=== PATIENT | male | born 1975 | race American Indian/Alaskan Native ===

== ENCOUNTER → 2018-03-31 14:10 | Outpatient (CLI) | payer OTHER, SELFPAY ==
--- NOTE | 2018-03-31 | DI.RAD.S_ITS ---
PROCEDURE: XR FINGER LT MIN 2V INDICATIONS: LEFT MIDDLE FINGER TECHNIQUE: AP hand, 2 views of the third finger(s) acquired. COMPARISON: None. FINDINGS: Bones: Mixed lytic and sclerotic expansile lesion involving the third proximal phalangeal head is seen. Well-defined oval lucent area involving the volar aspect of third proximal phalangeal base is also noted. No gross acute fracture or dislocation. No periosteal reaction no cortical disruption is seen. No suspicious bony lesions. Soft tissues: No suspicious soft tissue calcifications. Soft tissue swelling around third proximal phalangeal head is seen. IMPRESSION: Expansile predominantly radiolucent lesion involving the third proximal phalangeal head with surrounding soft tissue swelling. Finding may represent benign process such as enchondroma. No definite pathologic fracture is seen. Given patient's history of prior surgery in third finger, please correlate with prior study if available. Alternatively, further evaluation with MRI of the finger to be done if indicated. Dictated by: Sahil Ashley M.D. on 03/31/2018 at 15:29 Approved by: Sahil Ashley M.D. on 03/31/2018 at 15:32
== END ==
PROVIDERS: Family Provider Family Medicine; PCP Family Medicine; Visit Provider Family Medicine
DX: M79.645 Pain in left finger(s) (principal); M89.8X4 Other specified disorders of bone, hand; M79.89 Other specified soft tissue disorders
CPT/HCPCS: 73140

== ENCOUNTER 2018-05-22 07:36 | Day surgery (SDC) | payer OTHER, SELFPAY ==
[2018-05-22] VITALS (9 sets, daily range): BP systolic 124–142; BP diastolic 73–90; PULSE 61–70; RESP 8–16; TEMP 36.4–37.4; O2SAT 93–98; BMI 28.4
--- NOTE | 2018-05-22 | PATH_ITS ---
[facility] Accession Number: [id number] . 01 Material submitted: . LEFT MIDDLE PROXIMAL PHALANX . 01 Clinical history: . LYTIC LESION . 01 Diagnosis: Left Middle Proximal Phalanx, Biopsy Curettings: Trabecular bone fragments intermixed with fibroblast-like spindle cells, giant cells and blood-filled spaces. See comment. MRV/05/28/2018 . 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 These can have a similar histologic appearance. The morphology argues against giant cell tumor (giant cell tumors show mononuclear stromal cells and numerous multinucleated osteoclast-like giant cells with many nuclei- usually greater than 50). In addition, features of malignancy including cytologic atypia and infiltration are not present in the material examined. The case has been seen in intradepartmental review by Dr.Patricia Ball, who concurs with the interpretation. . 01 Electronically signed: . Cary Cheema MD, Pathologist NPI- [id number] . 01 Gross description: . Received one formalin-filled container labeled with the patient's name and labeled left middle finger proximal phalanx lytic lesion, are multiple less than 0.1 cm to 0.4 cm, red-steinberg portions of tissue and firm material. Inked and entirely submitted in one cassette. The specimen will be placed in [facility] for softening. (DC:[id number]) /FRR . 01 Microscopic: . Microscopic evaluation shows trabecular bone fragments with evidence of remodeling. Intermixed is a proliferation of spindled fibroblast-like cells, giant cells (with less than 12 nuclei) and blood-filled spaces. Scattered small lymphocytes and hemosiderin deposition is also noted. Mitotic figures are no identified. Cytologic atypia is not identified. Definite reactive woven bone is not identified. . 01 Pathologist provided ICD-10: D16.12 . 01 CPT . 470727 Performed at: 01 [facility] [address] [place] [address] [address], [place], [place] [id number] MD Alexis Trujillo MD Phone: [phone]
--- NOTE | 2018-05-22 08:19 | SUR.PREOP ---
IV start by Paul Tamayo
[2018-05-22] MEDS: LACTATED RINGERS 1,000 ML 42 ML IV (08:22)
--- NOTE | 2018-05-22 09:07 | PM.PREOP ---
Pre-operative Note Interval Note History & Physical reviewed/Exam performed by Physician: Yes Changes to H&P: No
[2018-05-22] MEDS: CEFAZOLIN 2 GM/100 ML FROZ.PIGGY IV (09:21)
[2018-05-22] MEDS: BUPIVACAINE 0.5% W/ EPI (PF) VIAL 30 ML INJ (10:03)
[2018-05-22] MEDS: fentaNYL 100 MCG/2 ML INJ 50 MCG IV ×2 (10:45→10:50)
--- NOTE | 2018-05-22 10:52 | PM.OP.1 ---
Operative Date/Time/Diagnoses Date of procedure: 05/22/18 Time of procedure: 09:30 Pre-op diagnosis: Lytic lesion involving the left middle finger proximal phalanx Post-op diagnosis: same Procedure & Clinicians Procedure: Curettage of bony lesion as well as bone grafting with open reduction external fixation Same procedure as scheduled: Yes Indications: Pathological fracture due to a benign lytic lesion involving the proximal phalanx Surgeon: Stanley Landeros Click Yes if Unassisted: Yes Anesthesia Type: General Operative Notes Findings: Lytic lesion involving the head of the proximal phalanx. 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 Weakening of the cortex just proximal to the lesion with impending pathological fracture. Closure Type: primary Specimen(s): other (Intramedullary tissue was sent to pathology) Prosthetic devices, grafts, tissues, transplants, or devices: Consults bone chips were used as well as the Synthes handset Applied: graft(s) and implant(s) Estimated Blood Loss (mL): 5 Blood products transfused: none Tourniquet time (min): 51 Procedure in detail: On date of service, patient was met in the holding area where his operative site was signed and witnessed by the OR staff. The surgery was once again discussed with the patient in remaining questions or concerns he had were answered fully. Patient was taken back to the operating theater and placed on the operating table in a supine position. Great care was taken to ensure that all bony prominences were appropriately padded. Time-out was performed verifying patient's name procedure and operative site. The left arm was prepped and draped in a normal sterile fashion. Esmarch was used to exsanguinate the limb the tourniquet was turned up to 250 mm of mercury. Fifteen blade was used to make a dorsal incision along the length of the proximal phalanx. Sharp dissection was continued until the extensor tendon was visualized. Using a deep knife the extensor tendon was split midline giving us good visualization of the proximal phalanx. At the neck of the phalanx 1 could see the early stage of the pathological fracture. Small window was made into the cortex and using a curette, the lytic lesion was removed. It was mainly blood and there was really no sign of any remaining marrow tissue. C-arm was also used to help verify the extent of the curettage. Once we felt we had excised the lesion it was then packed with cancellous bone chips. That was packed into the head of the phalanx as well as the neck filling the lytic lesion fully with cancellous bone chips. C-arm was used again to verify placement of allograft. Next, plate was then secured onto the proximal phalanx to secure the pathological fracture site. With adequate fixation both distal and proximal to the area of concern. Final x-rays were obtained verifying plate positioning as well as screw length and positioning. Wound was then copiously irrigated and the split in the extensor tendon was closed with 4 0 Ethibond. Skin was closed with nylon. Patient's hand was then cleaned, dried, and dressed. Patient was placed into a splint and taken to the PACU in stable condition. Complications: none Condition: stable Disposition: PACU Plan for aftercare: Patient can begin gentle range of motion to the middle finger within a few days. No lifting more than a few lb for 6 weeks. Hand therapy will need to make the patient a removable splint for the finger that he can wear as needed.
[2018-05-22] MEDS: HYDROCODONE/ACET 5/325 TABLET 1 TAB PO ×2 (10:55→11:16)
--- NOTE | 2018-05-22 11:48 | SUR.PHASEII ---
Splint/dressing dry and intact. DC instructions reviewed with patient and SO and also printed on paper.
== END 2018-05-22 11:55 | disposition home or self-care (01) ==
PROVIDERS: Visit Provider Orthopaedic Surgery
PROC: (CPT 26735; principal; 2018-05-22 09:00)
DX: M89.9 Disorder of bone, unspecified (principal); I10 Essential (primary) hypertension; E11.9 Type 2 diabetes mellitus without complications; Z79.4 Long term (current) use of insulin; Z79.899 Other long term (current) drug therapy; M84.445A Pathological fracture, left finger(s), initial encounter for fracture
CPT/HCPCS: 26735; 26215; J0690; J2405; J2704; J3010

== ENCOUNTER 2021-02-11 08:16 | Inpatient (IN) | payer OTHER, SELFPAY ==
[2021-02-11] VITALS (33 sets, daily range): BP systolic 99–141; BP diastolic 63–83; PULSE 91–122; RESP 12–26; TEMP 36.5–36.8; O2SAT 92–100; BMI 26.4; BMI 24.0
--- NOTE | 2021-02-11 08:34 | DI.RAD.S_ITS ---
PROCEDURE: XR CHEST 1V INDICATIONS: chest pain TECHNIQUE: One view of the chest was acquired. COMPARISON: [facility], CT, PE STUDY (CTA CHEST), 04/17/2017, 13:41. [facility], CR, CHEST 1 VIEW, 04/18/2017, 14:35. FINDINGS: Surgical changes and devices: None. Lungs and pleura: On this semiupright portable chest examination, no large pneumothorax or large pleural effusions are seen. No focal infiltrates are seen. Low lung volumes are noted. This causes a crowded appearance to the lung markings and limits evaluation. Mediastinum: Mediastinal contours appear normal. Heart size is normal. Bones and chest wall: No suspicious bony lesions. Overlying soft tissues appear unremarkable. IMPRESSION: Portable chest within normal limits. Dictated by: Stalin Napier M.D. on 02/11/2021 at 7:51 Approved by: Stalin Napier M.D. on 02/11/2021 at 7:52
--- NOTE | 2021-02-11 08:35 | ED.SOB ---
HPI - SOB/Dyspnea General Chief Complaint: Chest Pain Stated Complaint: Trouble breathing, palpitations Time Seen by Provider: 02/11/21 08:31 History of Present Illness HPI Narrative: The patient presents with weakness, mild central chest discomfort and dyspnea for the past 3 days. He has no head cold symptoms, no sore throat, and no fever. He has no change in taste or smell. With the dyspnea he has no cough. He has no orthopnea, no peripheral edema. Dyspnea is increased with exertion. He underwent COVID-19 immunizations March and April 2020. He had active COVID December 2018. He received a booster 9 days ago. I talked to his PCM. There was concern about immunization reaction. The patient ihas type 2 diabetes, he ran out of his testing device as well as he has insulin 3-4 days ago. He has not bothered to refill the medications. He has not been testing his glucose levels or taking medications. In addition to diabetes, he has a history of sepsis in pancreatitis related to cholecystitis. He is status post cholecystectomy. He has no abdominal discomfort at this time. He denies nausea vomiting. His appetite is normal. He is drinking plenty of fluids. He has no urinary complaints. Related Data Home Medications Medication Instructions Recorded Confirmed lisinopril 20 mg tablet 20 mg PO QDAY #0 11/10/11 05/22/18 Previous Rx's Medication Instructions Recorded insulin glargine 100 unit/mL (3 40 unit (0.4 mL) SQ QHS #1 vial 04/25/17 mL) subcutaneous pen (Lantus Solostar U-100 Insulin) hydrocodone 5 mg-acetaminophen 325 2 tab PO Q4-6H PRN #60 tab 05/22/18 mg tablet ([place]) Allergies Allergy/AdvReac Type Severity Reaction Status Date / Time No Known Drug Allergies Allergy Verified 05/21/18 14:09 Review of Systems Constitutional Constitutional: Reports as per HPI, Reports body ache(s), Denies chills, Reports fatigue, Denies fever(s), Denies headache(s) and Reports weakness Eyes Eyes: Denies blurry vision and Denies change in vision ENT Ears, Nose, Mouth, and Throat: Denies vertigo, Denies dizziness, Denies headache(s), Denies neck pain, Denies sinus pressure and Denies sore throat Cardiovascular Cardiovascular: Reports chest pain, Denies syncope, Reports rapid heart rate, Denies pedal edema, Denies edema and Denies dyspnea Respiratory Respiratory: Denies chest congestion, Denies cough and Denies dyspnea Gastrointestinal Gastrointestinal: Denies constipation, Denies nausea and Denies vomiting Genitourinary Comments: No complaints Musculoskeletal Musculoskeletal: Denies back pain and Denies neck pain Integumentary/Breasts Skin/Breast: Denies pruritus, Denies lesions and Denies rash Neurologic Neurologic: Denies confusion, Denies vertigo, Denies dizziness, Denies syncope, Denies headache(s) and Reports weakness Psychiatric Psychiatric: Denies confusion Endocrine Endocrine: Reports fatigue Hematologic/Lymphatic On Anticoagulants: No Patient History Medical History (Updated 02/11/21 @ 15:07 by Rory Leija MD) Cholecystitis with cholelithiasis Pancreatitis Type 2 diabetes mellitus Surgical History (Updated 02/11/21 @ 10:11 by Rory Leija MD) Status post cholecystectomy Social History household members: significant other Smoking Status: Current every day smoker Exam Initial Vital Signs Initial Vital Signs: Vital Signs Temperature 97.7 F 02/11/21 08:34 Pulse Rate 114 H 02/11/21 08:34 Respiratory Rate 20 02/11/21 08:34 Blood Pressure 141/82 H 02/11/21 08:34 Pulse Oximetry 100 02/11/21 08:34 Const General: cooperative, comfortable and in distress (Appears ill) HENMT Head: normocephalic and occipital foramen tenderness Face and sinus: sinuses nontender Mouth: oral mucosae normal Throat: posterior oropharynx normal Eyes Conjunctivae: conjunctivae normal Sclera: sclerae normal Cornea: corneas normal Pupils: PERRL EOM: EOM intact bilaterally Neck Neck: full ROM, No tender and No JVD Chest Chest: normal inspection of the chest Resp Effort & Inspection: tachypneic Auscultation: clear to auscultation bilaterally Cardio Rate: tachycardic Rhythm: regular rhythm Heart Sounds: S2 normal and no murmurs GI Inspection: normal to inspection and non-distended Palpation: soft, No mass, No rigid and No tender Back/Spine/Pelvis Back: No CVA tenderness Skin General: no rashes or lesions noted Neuro General: patient alert, patient awake and patient oriented x3 Extrem General: normal to inspection, no pedal edema and no calf tenderness Psych Mental Status: mental status grossly normal Course Course Course Narrative: The patient's presentation immediately raise concern for COVID-19, or immunization reaction. He was tachycardic, with mild tachypnea. He had no fever. O2 sats were 100% on room air. CXR was clear. He is testing positive for COVID-19. However, the patient is in DKA, likely from a using his sling for the last several days. He was initially given fluid boluses. IV insulin 10 units was given. He was then started on the DKA protocol. He is acidotic with a pH 7.1, with an anion shift. He has improved with the medications and fluids given. He requires admission. Beds are not immediately available. Multiple calls were made in an effort to find a hospital bed, none are to be found. Dr. Murrieta, our hospitalist was contacted. He is admitted to this facility, he is in an ER boarding status until further notice. Orders Ordered: ED Orders 02/11/21 08:30 COVID19 -Nasal swab/Pre-Proc Stat 02/11/21 08:34 XR chest 1V Stat EKG-12 Lead Stat 02/11/21 09:10 BNP [NT-proBNP (BNP-Adult 18+)] Stat COVID19 - ADMIT ([employer] swab/PCR) Stat CRP [C-Reactive Protein Quant] Stat Complete Blood Count AUTO DIFF Stat Comprehensive Metabolic Panel Stat D Dimer Stat ESR [Erythrocyte Sedimentation Rate] Stat Hemoglobin A1C% w Est Avg Glu Stat Ketones (Beta-Hydroxybutyrate) Stat Lactate (Lactic Acid) Stat Lipase Stat Osmolality, Serum Stat Troponin & CK Cardiac Panel Stat 02/11/21 10:12 ABG [Arterial Blood Gas] Stat 02/11/21 10:15 Urinalysis and Microscopic Stat 02/11/21 10:32 Blood Culture Stat 02/11/21 13:50 Basic Metabolic Panel Stat 02/11/21 13:51 pH VBG Stat 02/11/21 17:00 BMP [Basic Metabolic Panel] Stat INSULIN DRIP PREMIX (Myxredlin Drip Premix) 100 unit in 100 mls @ 6 mls/hr IV TITRATE BRUNILDA; Protocol Last Titration: 02/11/21 13:07 Dose: 4 mls/hr Documented by: CHERRY Cosigned by: MING Admin: 02/11/21 11:19 Dose: 6 ml/hr, 6 mls/hr Documented by: HCERRY Cosigned by: MING Sodium Chloride (Normal Saline 0.9%) 1,000 mls @ 500 mls/hr IV BOLUS ONE Stop: 02/11/21 15:14 Last Admin: 02/11/21 13:32 Dose: Not Given Documented by: CHERRY Dextrose/Sodium Chloride (Dextrose 5%-0.45% Ns) 1,000 mls @ 129 mls/hr IV CONT BRUNILDA; Protocol Last Admin: 02/11/21 13:15 Dose: 129 mls/hr Documented by: CHERRY POTASSIUM CHLORIDE IN WATER (Potassium Cl 10 Meq/100 Ml Zeenat) 10 meq in 100 mls @ 100 mls/hr IV Q1H BRUNILDA Stop: 02/11/21 16:44 Last Admin: 02/11/21 14:53 Dose: 100 mls/hr Documented by: THERESA Discontinued Medications Aspirin (Aspirin 81 Mg Chew Tab) 324 mg PO NOW ONE Stop: 02/11/21 08:53 Last Admin: 02/11/21 09:18 Dose: 324 mg Documented by: CHERRY Sodium Chloride (Normal Saline 0.9%) 1,000 mls @ 1,000 mls/hr IV BOLUS ONE Stop: 02/11/21 10:42 Last Infusion: 02/11/21 11:16 Dose: 0 mls/hr Documented by: Admin: 02/11/21 10:05 Dose: 1,000 mls/hr Documented by: CHERRY Sodium Chloride (Normal Saline 0.9%) 1,000 mls @ 500 mls/hr IV BOLUS ONE Stop: 02/11/21 13:13 Last Infusion: 02/11/21 13:09 Dose: 0 mls/hr Documented by: Infusion: 02/11/21 13:07 Dose: 0 mls/hr Documented by: Admin: 02/11/21 11:17 Dose: 500 mls/hr Documented by: CHERRY Insulin Human Regular (Insulin Regular 100 Unit/Ml 3 Ml Vial) 10 unit IV NOW ONE Stop: 02/11/21 09:45 Last Admin: 02/11/21 10:05 Dose: 10 unit Documented by: CHERRY Cosigned by: BRENDA Vital Signs Vital signs: Vital Signs - 8 hr 02/11/21 08:34 02/11/21 08:59 02/11/21 09:00 Temperature 97.7 F Pulse Rate 114 H 117 H 117 H Respiratory Rate 20 19 26 H Blood Pressure 141/82 H 138/77 Pulse Oximetry 100 99 99 02/11/21 09:30 02/11/21 10:00 02/11/21 10:30 Temperature Pulse Rate 115 H 114 H 122 H Respiratory Rate 26 H 22 21 Blood Pressure 127/74 136/83 Pulse Oximetry 100 99 100 02/11/21 10:31 02/11/21 11:00 02/11/21 11:30 Temperature Pulse Rate 121 H 114 H 112 H Respiratory Rate 20 16 15 Blood Pressure 134/78 133/78 121/71 Pulse Oximetry 100 100 98 02/11/21 12:00 02/11/21 12:30 02/11/21 13:00 Temperature Pulse Rate 105 H 106 H 109 H Respiratory Rate 18 17 16 Blood Pressure 126/82 123/81 113/70 Pulse Oximetry 100 99 97 02/11/21 13:30 Temperature Pulse Rate 117 H Respiratory Rate 17 Blood Pressure 117/73 Pulse Oximetry 99 MDM - SOB/Dyspnea Lab Data Result diagrams: 02/11/21 09:10 02/11/21 13:50 Labs: Lab Results 02/11/21 02/11/21 02/11/21 Range/Units 08:30 09:10 09:10 WBC 9.5 (4.5-11.0) X10^3/uL RBC 5.63 (4.5-5.9) X10^6/uL Hgb 16.6 (13.5-17.5) g/dL Hct 49.6 (41-53) % MCV 88.1 (80-100) fL MCH 29.5 (26-34) PG MCHC 33.5 (30-36) % RDW 14.5 (11.6-14.8) % Plt Count 269 (150-400) X10^3/uL Neut % (Auto) 89.8 H (50-75) % Lymph % (Auto) 7.0 L (25-40) % [place] % (Auto) 2.9 L (3-14) % Eos % (Auto) 0.1 L (2-4) % Baso % (Auto) 0.2 (0-2) % Neut # (Auto) 8600 H (7635-0206) /uL Lymph # (Auto) 700 L (2747-8150) /uL [place] # (Auto) 300 (0-900) /uL Eos # (Auto) 0 (0-450) /uL Baso # (Auto) 0 (0-100) /uL ESR (0-15) MM/HR D-Dimer (<230) ng/mL ABG pH (7.35-7.45) ABG pCO2 (35-45) mmHg ABG pO2 (80-100) mmHg ABG HCO3 (22-26) mmol/L ABG Total CO2 (21-31) mmol/L ABG O2 Saturation (95-100) % ABG Base Excess (-2-2) mmol/L VBG pH (7.33-7.43) FiO2 Sodium 140 (137-145) mmol/L Potassium 4.8 (3.4-5.1) mmol/L Chloride 103 (98-107) mmol/L Carbon Dioxide 6 L* (22-32) mmol/L BUN 13 (9-20) mg/dL Creatinine 1.15 (0.66-1.25) mg/dL Estimated GFR > 60.0 (>60) mL/min BUN/Creatinine Ratio 11.3 (6-22) Glucose 508 H* (70-100) mg/dL Hemoglobin A1c (4.0-6.0) % Lactate (0.7-2.1) mmol/L Calcium 9.2 (8.4-10.2) mg/dL Total Bilirubin 0.6 (0.2-1.3) mg/dL AST 18 (17-59) IU/L ALT 18 (<50) IU/L Alkaline Phosphatase 119 (38-126) U/L Total Creatine Kinase 41 L (55-170) U/L CK-MB (CK-2) TNP CK-MB (CK-2) Rel Index TNP Troponin I < 0.012 (0.01-0.034) ng/mL C-Reactive Protein (<1.0) mg/dL NT-Pro-B Natriuret Pep (<125) pg/mL Total Protein 8.8 H (6.3-8.2) g/dL Albumin 5.1 H (3.5-5.0) g/dL Globulin 3.7 (1.7-4.1) g/dL Albumin/Globulin Ratio 1.4 (1.0-2.8) Lipase 48 (23-300) U/L Urine Color Urine Appearance Urine pH (4.5-8.0) Ur Specific [place] (1.000-1.035) Urine Protein (Negative) Urine Glucose (UA) (Negative) g/dL Urine Ketones (NEGATIVE) Urine Occult Blood (Negative) Urine Nitrate (Negative) Urine Bilirubin (NEGATIVE) Urine Urobilinogen (0.2) E.U./dL Ur Leukocyte Esterase (NEGATIVE) Urine RBC (0-5/HPF) Urine WBC (0-5/HPF) Amorphous Sediment Urine Bacteria (None) Hyaline Casts (None) Ur Culture Indicated? Ketones (<0.27) mmol/L SARS-CoV-2 (PCR) Positive H (Negative) 02/11/21 02/11/21 02/11/21 Range/Units 09:10 09:10 09:10 WBC (4.5-11.0) X10^3/uL RBC (4.5-5.9) X10^6/uL Hgb (13.5-17.5) g/dL Hct (41-53) % MCV (80-100) fL MCH (26-34) PG MCHC (30-36) % RDW (11.6-14.8) % Plt Count (150-400) X10^3/uL Neut % (Auto) (50-75) % Lymph % (Auto) (25-40) % [place] % (Auto) (3-14) % Eos % (Auto) (2-4) % Baso % (Auto) (0-2) % Neut # (Auto) (6604-5126) /uL Lymph # (Auto) (4768-7285) /uL [place] # (Auto) (0-900) /uL Eos # (Auto) (0-450) /uL Baso # (Auto) (0-100) /uL ESR 3 (0-15) MM/HR D-Dimer < 200 (<230) ng/mL ABG pH (7.35-7.45) ABG pCO2 (35-45) mmHg ABG pO2 (80-100) mmHg ABG HCO3 (22-26) mmol/L ABG Total CO2 (21-31) mmol/L ABG O2 Saturation (95-100) % ABG Base Excess (-2-2) mmol/L VBG pH (7.33-7.43) FiO2 Sodium (137-145) mmol/L Potassium (3.4-5.1) mmol/L Chloride (98-107) mmol/L Carbon Dioxide (22-32) mmol/L BUN (9-20) mg/dL Creatinine (0.66-1.25) mg/dL Estimated GFR (>60) mL/min BUN/Creatinine Ratio (6-22) Glucose (70-100) mg/dL Hemoglobin A1c (4.0-6.0) % Lactate (0.7-2.1) mmol/L Calcium (8.4-10.2) mg/dL Total Bilirubin (0.2-1.3) mg/dL AST (17-59) IU/L ALT (<50) IU/L Alkaline Phosphatase (38-126) U/L Total Creatine Kinase (55-170) U/L CK-MB (CK-2) CK-MB (CK-2) Rel Index Troponin I (0.01-0.034) ng/mL C-Reactive Protein (<1.0) mg/dL NT-Pro-B Natriuret Pep (<125) pg/mL Total Protein (6.3-8.2) g/dL Albumin (3.5-5.0) g/dL Globulin (1.7-4.1) g/dL Albumin/Globulin Ratio (1.0-2.8) Lipase (23-300) U/L Urine Color Urine Appearance Urine pH (4.5-8.0) Ur Specific [place] (1.000-1.035) Urine Protein (Negative) Urine Glucose (UA) (Negative) g/dL Urine Ketones (NEGATIVE) Urine Occult Blood (Negative) Urine Nitrate (Negative) Urine Bilirubin (NEGATIVE) Urine Urobilinogen (0.2) E.U./dL Ur Leukocyte Esterase (NEGATIVE) Urine RBC (0-5/HPF) Urine WBC (0-5/HPF) Amorphous Sediment Urine Bacteria (None) Hyaline Casts (None) Ur Culture Indicated? Ketones (<0.27) mmol/L SARS-CoV-2 (PCR) Positive H (Negative) 02/11/21 02/11/21 02/11/21 Range/Units 09:10 09:10 09:10 WBC (4.5-11.0) X10^3/uL RBC (4.5-5.9) X10^6/uL Hgb (13.5-17.5) g/dL Hct (41-53) % MCV (80-100) fL MCH (26-34) PG MCHC (30-36) % RDW (11.6-14.8) % Plt Count (150-400) X10^3/uL Neut % (Auto) (50-75) % Lymph % (Auto) (25-40) % [place] % (Auto) (3-14) % Eos % (Auto) (2-4) % Baso % (Auto) (0-2) % Neut # (Auto) (3053-2694) /uL Lymph # (Auto) (3370-6123) /uL [place] # (Auto) (0-900) /uL Eos # (Auto) (0-450) /uL Baso # (Auto) (0-100) /uL ESR (0-15) MM/HR D-Dimer (<230) ng/mL ABG pH (7.35-7.45) ABG pCO2 (35-45) mmHg ABG pO2 (80-100) mmHg ABG HCO3 (22-26) mmol/L ABG Total CO2 (21-31) mmol/L ABG O2 Saturation (95-100) % ABG Base Excess (-2-2) mmol/L VBG pH (7.33-7.43) FiO2 Sodium (137-145) mmol/L Potassium (3.4-5.1) mmol/L Chloride (98-107) mmol/L Carbon Dioxide (22-32) mmol/L BUN (9-20) mg/dL Creatinine (0.66-1.25) mg/dL Estimated GFR (>60) mL/min BUN/Creatinine Ratio (6-22) Glucose (70-100) mg/dL Hemoglobin A1c 12.4 H (4.0-6.0) % Lactate 1.6 (0.7-2.1) mmol/L Calcium (8.4-10.2) mg/dL Total Bilirubin (0.2-1.3) mg/dL AST (17-59) IU/L ALT (<50) IU/L Alkaline Phosphatase (38-126) U/L Total Creatine Kinase (55-170) U/L CK-MB (CK-2) CK-MB (CK-2) Rel Index Troponin I (0.01-0.034) ng/mL C-Reactive Protein < 0.5 (<1.0) mg/dL NT-Pro-B Natriuret Pep 12 (<125) pg/mL Total Protein (6.3-8.2) g/dL Albumin (3.5-5.0) g/dL Globulin (1.7-4.1) g/dL Albumin/Globulin Ratio (1.0-2.8) Lipase (23-300) U/L Urine Color Urine Appearance Urine pH (4.5-8.0) Ur Specific [place] (1.000-1.035) Urine Protein (Negative) Urine Glucose (UA) (Negative) g/dL Urine Ketones (NEGATIVE) Urine Occult Blood (Negative) Urine Nitrate (Negative) Urine Bilirubin (NEGATIVE) Urine Urobilinogen (0.2) E.U./dL Ur Leukocyte Esterase (NEGATIVE) Urine RBC (0-5/HPF) Urine WBC (0-5/HPF) Amorphous Sediment Urine Bacteria (None) Hyaline Casts (None) Ur Culture Indicated? Ketones (<0.27) mmol/L SARS-CoV-2 (PCR) (Negative) 02/11/21 02/11/21 02/11/21 Range/Units 09:10 10:12 10:15 WBC (4.5-11.0) X10^3/uL RBC (4.5-5.9) X10^6/uL Hgb (13.5-17.5) g/dL Hct (41-53) % MCV (80-100) fL MCH (26-34) PG MCHC (30-36) % RDW (11.6-14.8) % Plt Count (150-400) X10^3/uL Neut % (Auto) (50-75) % Lymph % (Auto) (25-40) % [place] % (Auto) (3-14) % Eos % (Auto) (2-4) % Baso % (Auto) (0-2) % Neut # (Auto) (2289-7933) /uL Lymph # (Auto) (9125-9426) /uL [place] # (Auto) (0-900) /uL Eos # (Auto) (0-450) /uL Baso # (Auto) (0-100) /uL ESR (0-15) MM/HR D-Dimer (<230) ng/mL ABG pH 7.14 L* (7.35-7.45) ABG pCO2 12.5 L* (35-45) mmHg ABG pO2 121 H (80-100) mmHg ABG HCO3 4 L (22-26) mmol/L ABG Total CO2 < 5 L (21-31) mmol/L ABG O2 Saturation 98 (95-100) % ABG Base Excess -25.0 L (-2-2) mmol/L VBG pH (7.33-7.43) FiO2 21 Sodium (137-145) mmol/L Potassium (3.4-5.1) mmol/L Chloride (98-107) mmol/L Carbon Dioxide (22-32) mmol/L BUN (9-20) mg/dL Creatinine (0.66-1.25) mg/dL Estimated GFR (>60) mL/min BUN/Creatinine Ratio (6-22) Glucose (70-100) mg/dL Hemoglobin A1c (4.0-6.0) % Lactate (0.7-2.1) mmol/L Calcium (8.4-10.2) mg/dL Total Bilirubin (0.2-1.3) mg/dL AST (17-59) IU/L ALT (<50) IU/L Alkaline Phosphatase (38-126) U/L Total Creatine Kinase (55-170) U/L CK-MB (CK-2) CK-MB (CK-2) Rel Index Troponin I (0.01-0.034) ng/mL C-Reactive Protein (<1.0) mg/dL NT-Pro-B Natriuret Pep (<125) pg/mL Total Protein (6.3-8.2) g/dL Albumin (3.5-5.0) g/dL Globulin (1.7-4.1) g/dL Albumin/Globulin Ratio (1.0-2.8) Lipase (23-300) U/L Urine Color Yellow Urine Appearance Clear Urine pH 5.0 (4.5-8.0) Ur Specific [place] 1.025 (1.000-1.035) Urine Protein 1+ H (Negative) Urine Glucose (UA) 1+ H (Negative) g/dL Urine Ketones 3+ H (NEGATIVE) Urine Occult Blood 3+ H (Negative) Urine Nitrate Negative (Negative) Urine Bilirubin Negative (NEGATIVE) Urine Urobilinogen 0.2 (0.2) E.U./dL Ur Leukocyte Esterase Negative (NEGATIVE) Urine RBC 5-10/hpf H (0-5/HPF) Urine WBC None seen (0-5/HPF) Amorphous Sediment 2+ Urine Bacteria None seen (None) Hyaline Casts 1-5/lpf (None) Ur Culture Indicated? Cult not indicated Ketones 10.87 H (<0.27) mmol/L SARS-CoV-2 (PCR) (Negative) 02/11/21 02/11/21 Range/Units 13:50 13:51 WBC (4.5-11.0) X10^3/uL RBC (4.5-5.9) X10^6/uL Hgb (13.5-17.5) g/dL Hct (41-53) % MCV (80-100) fL MCH (26-34) PG MCHC (30-36) % RDW (11.6-14.8) % Plt Count (150-400) X10^3/uL Neut % (Auto) (50-75) % Lymph % (Auto) (25-40) % [place] % (Auto) (3-14) % Eos % (Auto) (2-4) % Baso % (Auto) (0-2) % Neut # (Auto) (8301-3379) /uL Lymph # (Auto) (0965-4261) /uL [place] # (Auto) (0-900) /uL Eos # (Auto) (0-450) /uL Baso # (Auto) (0-100) /uL ESR (0-15) MM/HR D-Dimer (<230) ng/mL ABG pH (7.35-7.45) ABG pCO2 (35-45) mmHg ABG pO2 (80-100) mmHg ABG HCO3 (22-26) mmol/L ABG Total CO2 (21-31) mmol/L ABG O2 Saturation (95-100) % ABG Base Excess (-2-2) mmol/L VBG pH 7.21 L (7.33-7.43) FiO2 Sodium 142 (137-145) mmol/L Potassium 4.1 (3.4-5.1) mmol/L Chloride 110 H (98-107) mmol/L Carbon Dioxide 11 L (22-32) mmol/L BUN 13 (9-20) mg/dL Creatinine 0.85 (0.66-1.25) mg/dL Estimated GFR > 60.0 (>60) mL/min BUN/Creatinine Ratio 15.3 (6-22) Glucose 288 H D (70-100) mg/dL Hemoglobin A1c (4.0-6.0) % Lactate (0.7-2.1) mmol/L Calcium 8.5 (8.4-10.2) mg/dL Total Bilirubin (0.2-1.3) mg/dL AST (17-59) IU/L ALT (<50) IU/L Alkaline Phosphatase (38-126) U/L Total Creatine Kinase (55-170) U/L CK-MB (CK-2) CK-MB (CK-2) Rel Index Troponin I (0.01-0.034) ng/mL C-Reactive Protein (<1.0) mg/dL NT-Pro-B Natriuret Pep (<125) pg/mL Total Protein (6.3-8.2) g/dL Albumin (3.5-5.0) g/dL Globulin (1.7-4.1) g/dL Albumin/Globulin Ratio (1.0-2.8) Lipase (23-300) U/L Urine Color Urine Appearance Urine pH (4.5-8.0) Ur Specific [place] (1.000-1.035) Urine Protein (Negative) Urine Glucose (UA) (Negative) g/dL Urine Ketones (NEGATIVE) Urine Occult Blood (Negative) Urine Nitrate (Negative) Urine Bilirubin (NEGATIVE) Urine Urobilinogen (0.2) E.U./dL Ur Leukocyte Esterase (NEGATIVE) Urine RBC (0-5/HPF) Urine WBC (0-5/HPF) Amorphous Sediment Urine Bacteria (None) Hyaline Casts (None) Ur Culture Indicated? Ketones (<0.27) mmol/L SARS-CoV-2 (PCR) (Negative) Point of Care Testing Glucose POC 287 Imaging Data Chest x-ray: Radiologist's Impression: No acute findings. ECG Data Attestation: I personally reviewed and interpreted this ECG as follows: (Sinus tachycardia rate 115 beats per minute. Normal intervals. No ectopy. Motion artifact. No acute ST T wave changes.) Critical Care Time Critical Care Time Critical Care Time: Yes Total Critical Care Time: 55 Attestation: Critical care time included the initial evaluation of the patient, review of lab, x-ray and EKG data, and necessary clinical decisions. Management was continued in the ER awaiting disposition. The situation was discussed with the patient, and the admitting hospitalist. Discharge Plan Departure Patient Disposition: Admitted As Inpatient Clinical Impression: DKA, type 2, COVID-19 Prescriptions: No Action lisinopril 20 MG tablet 20 mg PO QDAY Qty: 0 0RF Lantus Solostar U-100 Insulin 100 UNIT/1 ML insulin pen 40 unit SQ QHS Qty: 1 0RF hydrocodone-acetaminophen [[place]] 5-325 mg tablet 2 tab PO Q4-6H PRN (Reason: pain) Qty: 60 0RF
[2021-02-11 08:52] LABS: COVID19 -Nasal RAPID POSITIVE (Negative)
[2021-02-11 09:17] LABS: Add Manual Diff / Slide Review NO; Basophils Absolute Auto 0 /uL (0-100); Basophils Percent Auto 0.2 % (0-2); Eosinophils Absolute Auto 0 /uL (0-450); Eosinophils Percent Auto 0.1 % (2-4); Hematocrit 49.6 % (41-53); Hemoglobin 16.6 g/dL (13.5-17.5); Lymphocytes Absolute Auto 700 /uL (1100-4500); Mean Corpuscular HGB Conc 33.5 % (30-36); Mean Corpuscular Hemoglobin 29.5 PG (26-34); Mean Corpuscular Volume 88.1 fL (80-100); Monocytes Absolute Auto 300 /uL (0-900); Monocytes Percent Auto 2.9 % (3-14); Neutrophils Absolute Auto 8600 /uL (1500-7000); Neutrophils Percent Auto 89.8 % (50-75); Platelet Count 269 X10^3/uL (150-400); Red Blood Cell Count 5.63 X10^6/uL (4.5-5.9); Red Cell Distribution Width 14.5 % (11.6-14.8); White Blood Cell Count 9.5 X10^3/uL (4.5-11.0)
[2021-02-11] MEDS: ASPIRIN 81 MG CHEW TAB 324 MG PO (09:18)
[2021-02-11 09:28] LABS: D Dimer < 200 ng/mL (<230)
[2021-02-11 09:31] LABS: Alanine Aminotransferase 18 IU/L (<50); Albumin 5.1 g/dL (3.5-5.0); Albumin Globulin Ratio 1.4 (1.0-2.8); Alkaline Phosphatase 119 U/L (38-126); Aspartate Aminotransferase 18 IU/L (17-59); BUN Creatinine Ratio 11.3 (6-22); Bilirubin Total 0.6 mg/dL (0.2-1.3); Blood Urea Nitrogen 13 mg/dL (9-20); Calcium 9.2 mg/dL (8.4-10.2); Chloride 103 mmol/L (98-107); Creatine Kinase 41 U/L (55-170); Estimated Glomerular Filt Rate > 60.0 mL/min (>60); Globulin 3.7 g/dL (1.7-4.1); HEMOLYSIS < 15 (0-50); Lipase 48 U/L (23-300); Potassium 4.8 mmol/L (3.4-5.1); Sodium 140 mmol/L (137-145); Total Protein 8.8 g/dL (6.3-8.2)
[2021-02-11 09:33] LABS: Carbon Dioxide 6 mmol/L (22-32); Glucose 508 mg/dL (70-100)
[2021-02-11 09:35] LABS: C-Reactive Protein Quant < 0.5 mg/dL (<1.0)
[2021-02-11 09:38] LABS: Erythrocyte Sedimentation Rate 3 MM/HR (0-15)
[2021-02-11 09:40] LABS: NT-proBNP (BNP-Adult 18+) 12 pg/mL (<125)
[2021-02-11 09:43] LABS: Troponin I < 0.012 ng/mL (0.01-0.034)
[2021-02-11] MEDS: SODIUM CHLORIDE 0.9% 1,000 ML 1000 ML IV (10:05)
[2021-02-11] MEDS: INSULIN REGULAR 100 UNIT/ML 3 ML VIAL 10 UNIT IV (10:05)
[2021-02-11 10:10] LABS: COVID19 - ADMIT (NP swab/PCR) POSITIVE (Negative)
[2021-02-11 10:41] LABS: Appearance Urine UA CLEAR; Bilirubin Urine UA NEGATIVE (NEGATIVE); Color Urine UA YELLOW; Glucose Urine UA 1+ g/dL (Negative); Ketones Urine UA 3+ (NEGATIVE); Leukocyte Esterase Urine UA NEGATIVE (NEGATIVE); Nitrite Urine UA NEGATIVE (Negative); Occult Blood Urine UA 3+ (Negative); Protein Urine UA 1+ (Negative); Specific Gravity Urine UA 1.025 (1.000-1.035); Urobilinogen Urine UA 0.2 E.U./dL (0.2)
[2021-02-11 10:52] LABS: PCO2 ABG 12.5 mmHg (35-45); PO2 ABG 121 mmHg (80-100); TCO2 ABG < 5 mmol/L (21-31); pH ABG 7.14 (7.35-7.45)
[2021-02-11 10:53] LABS: Oxygen Saturation ABG 98 % (95-100)
[2021-02-11 10:54] LABS: Fractionated Inspired Oxygen 21; HCO3 ABG 4 mmol/L (22-26)
[2021-02-11] MEDS: SODIUM CHLORIDE 0.9% 1,000 ML 500 ML IV ×2 (11:17→15:22)
[2021-02-11] MEDS: INSULIN DRIP PREMIX 100 UNIT/100 ML PLAST..BAG 6 UNIT IV (11:19)
[2021-02-11 11:24] LABS: Lactate (Lactic Acid) 1.6 mmol/L (0.7-2.1)
[2021-02-11 11:36] LABS: Ketones (Beta-Hydroxybutyrate) 10.87 mmol/L (<0.27)
[2021-02-11 11:37] LABS: Hemoglobin A1C% w Est Avg Glu 12.4 % (4.0-6.0)
[2021-02-11 11:38] LABS: RBC Urine 5-10/HPF (0-5/HPF); WBC Urine None Seen (0-5/HPF)
[2021-02-11 11:39] LABS: Amorphous Sediment Urine 2+; Bacteria Urine None Seen; Culture Indicated Urine Cult Not Indicated; Hyaline Casts Urine 1-5/LPF
[2021-02-11] MEDS: DEXTROSE 5%-0.45% NS 1,000 ML 129 ML IV ×2 (13:15→21:21)
[2021-02-11 14:00] LABS: pH VBG 7.21 (7.33-7.43)
[2021-02-11 14:12] LABS: BUN Creatinine Ratio 15.3 (6-22); Blood Urea Nitrogen 13 mg/dL (9-20); Calcium 8.5 mg/dL (8.4-10.2); Carbon Dioxide 11 mmol/L (22-32); Chloride 110 mmol/L (98-107); Estimated Glomerular Filt Rate > 60.0 mL/min (>60); Glucose 288 mg/dL (70-100); HEMOLYSIS < 15 (0-50); Potassium 4.1 mmol/L (3.4-5.1); Sodium 142 mmol/L (137-145)
--- NOTE | 2021-02-11 14:46 | PC.NURSE ---
spoke w/ Dr. Murrieta re: potassium 4.1. Pt is on insulin gtt. DKA protocol. Received order for potassium riders (total 20 meq IV) then repeat BMP @ 1700.
[2021-02-11] MEDS: POTASSIUM CHLORIDE IN WATER 10 MEQ/100 ML PIGGYBACK 100 MEQ IV ×2 (14:53→16:10)
--- NOTE | 2021-02-11 15:15 | PC.NURSE ---
discussed insulin gtt w/ Dr. Murrieta. Pt was started lower than parameters on DKA protocol (Protocol would have dictated 0.15 units/kg/hour. pt started at 6 units/hour (@ 0.07units/kg/hour) by Dr. Leija. Dr. Leija then ordered decrease to 4units/hour (@ 0.05units/kg/hour). Glucose has remained stable over past 2 entries. Reviewed above with Dr. Murrieta. Dr. Murrieta then ordered return to protocol dosing of 0.1unit/kg/hour for glucose 291. Dose adjusted.
--- NOTE | 2021-02-11 15:29 | P.HP_ITS ---
History of Present Illness History of Present Illness Date Patient Seen: 02/11/21 Time Patient Seen: 15:29 Chief complaint: Trouble breathing, palpitations Narrative: This is a 45-year-old male with type 2 diabetes mellitus, opioid use disorder, nicotine addiction and recent COVID infection. He presents today describing shortness of breath the last 3 days with no insulin use during that time. His venous blood gas is notable for a pH is 7.14, a bicarb of 4 and a pCO2 of 12.5. The potassium is 4.1 with a creatinine of 0.85 and hemoglobin A1c of 12.4. His initial finger stick blood sugar was ?over 500. ? He appears to have classic diabetic ketoacidosis with an anion gap of 21. He has been receiving dextrose, IV fluid, potassium supplementation and q.1 hour blood sugar monitoring with improving glucose down into the 200s and resolution of his shortness of breath presentation. He was diagnosed with COVID about a month ago but did not get a serious infection or pneumonia. He just had his booster shot last week. He is a [employer], who smokes half a pack per day of cigarettes and drinks alcohol occasionally. He says that he, contrary to what he said to the ED physician, did not run out of his insulin but ran out of his continues glucose monitor pads and was waiting for the doctor to refill that with the pharmacy and so stopped using insulin because he could not be sure what his blood sugars were. Patient History Medical History (Updated 02/11/21 @ 15:43 by Erinn Murrieta MD) Cholecystitis with cholelithiasis Nicotine addiction Opioid use disorder Pancreatitis Type 2 diabetes mellitus Surgical History (Updated 02/11/21 @ 15:44 by Erinn Murrieta MD) H/O hand surgery Status post cholecystectomy Family & Social History Family History (Updated 02/11/21 @ 15:45 by Erinn Murrieta MD) Mother Diabetes mellitus Father Cancer Social History: household members significant other Safety & Behavioral: Feels Safe in Current Yes Environment Been Physically Hurt or No Threatened By a Person Tobacco & Substance use: Smoking Status Current every day 1/2 ppd smoker alcohol intake frequency 0-2 drinks per month Substance Use Type does not use Meds Home Medications and Allergies Home Medications Medication Instructions Recorded Confirmed Type lisinopril 20 mg tablet 20 mg PO QAM #0 11/10/11 02/11/21 History aspirin 81 mg tablet 81 mg PO QAM 02/11/21 02/11/21 History buprenorphine 12 mg-naloxone 3 mg 1 film BUCCAL BID 02/11/21 02/11/21 History sublingual film insulin glargine 100 unit/mL (3 34 unit SQ QHS 02/11/21 02/11/21 History mL) subcutaneous pen (Lantus Solostar U-100 Insulin) Allergies Allergy/AdvReac Type Severity Reaction Status Date / Time No Known Drug Allergies Allergy Verified 05/21/18 14:09 Review of Systems Review of Systems Narrative: Positive for shortness of breath, negative for coughing, nausea, vomiting, chest pain, fevers, chills, sweats, bleeding, rash, seizures, headaches, sore throat, diarrhea, abdominal pain and new allergies. Exam Vital Signs (past 8 hours): - 02/11/21 08:34 02/11/21 08:59 02/11/21 09:00 Temperature 97.7 F Pulse Rate 114 H 117 H 117 H Respiratory Rate 20 19 26 H Blood Pressure 141/82 H 138/77 Pulse Oximetry 100 99 99 02/11/21 09:30 02/11/21 10:00 02/11/21 10:30 Temperature Pulse Rate 115 H 114 H 122 H Respiratory Rate 26 H 22 21 Blood Pressure 127/74 136/83 Pulse Oximetry 100 99 100 02/11/21 10:31 02/11/21 11:00 02/11/21 11:30 Temperature Pulse Rate 121 H 114 H 112 H Respiratory Rate 20 16 15 Blood Pressure 134/78 133/78 121/71 Pulse Oximetry 100 100 98 02/11/21 12:00 02/11/21 12:30 02/11/21 13:00 Temperature Pulse Rate 105 H 106 H 109 H Respiratory Rate 18 17 16 Blood Pressure 126/82 123/81 113/70 Pulse Oximetry 100 99 97 02/11/21 13:30 02/11/21 14:00 02/11/21 14:30 Temperature Pulse Rate 117 H 105 H 104 H Respiratory Rate 17 15 14 Blood Pressure 117/73 Pulse Oximetry 99 98 97 02/11/21 15:00 Temperature Pulse Rate 104 H Respiratory Rate 15 Blood Pressure 116/75 Pulse Oximetry 98 Oxygen Delivery Method Room Air Narrative Exam Narrative: He is alert and oriented x3. He appears to be in mild distress with nonspecific symptoms. He has no observed dyspnea. Pupils are equally round and reactive to light and accommodation. Extraocular muscles are intact Sclerae are pink and nonicteric Throat looks normal No lymph nodes are felt head, neck, supraclavicular area There is no thyromegaly JVD is less than 6 cm Heart is regular rate and rhythm without murmur Lungs are clear to auscultation bilaterally Abdomen is soft, bowel sounds positive, nontender, no organomegaly Extremities have no ankle edema Skin has no rash or jaundice. Neurological exam Cranial nerves 2-12 test intact There is no tremor Motor function is 5/5 throughout Objective Labs Result Diagrams: 02/11/21 09:10 02/11/21 13:50 Labs: Laboratory Results - last 24 hr 02/11/21 02/11/21 02/11/21 08:30 09:10 09:10 WBC 9.5 RBC 5.63 Hgb 16.6 Hct 49.6 MCV 88.1 MCH 29.5 MCHC 33.5 RDW 14.5 Plt Count 269 Neut % (Auto) 89.8 H Lymph % (Auto) 7.0 L [place] % (Auto) 2.9 L Eos % (Auto) 0.1 L Baso % (Auto) 0.2 Neut # (Auto) 8600 H Lymph # (Auto) 700 L [place] # (Auto) 300 Eos # (Auto) 0 Baso # (Auto) 0 ESR D-Dimer ABG pH ABG pCO2 ABG pO2 ABG HCO3 ABG Total CO2 ABG O2 Saturation ABG Base Excess VBG pH FiO2 Sodium 140 Potassium 4.8 Chloride 103 Carbon Dioxide 6 L* BUN 13 Creatinine 1.15 Estimated GFR > 60.0 BUN/Creatinine Ratio 11.3 Glucose 508 H* Hemoglobin A1c Lactate Calcium 9.2 Total Bilirubin 0.6 AST 18 ALT 18 Alkaline Phosphatase 119 Total Creatine Kinase 41 L CK-MB (CK-2) TNP CK-MB (CK-2) Rel Index TNP Troponin I < 0.012 C-Reactive Protein NT-Pro-B Natriuret Pep Total Protein 8.8 H Albumin 5.1 H Globulin 3.7 Albumin/Globulin Ratio 1.4 Lipase 48 Urine Color Urine Appearance Urine pH Ur Specific [place] Urine Protein Urine Glucose (UA) Urine Ketones Urine Occult Blood Urine Nitrate Urine Bilirubin Urine Urobilinogen Ur Leukocyte Esterase Urine RBC Urine WBC Amorphous Sediment Urine Bacteria Hyaline Casts Ur Culture Indicated? Ketones SARS-CoV-2 (PCR) Positive H 02/11/21 02/11/21 02/11/21 09:10 09:10 09:10 WBC RBC Hgb Hct MCV MCH MCHC RDW Plt Count Neut % (Auto) Lymph % (Auto) [place] % (Auto) Eos % (Auto) Baso % (Auto) Neut # (Auto) Lymph # (Auto) [place] # (Auto) Eos # (Auto) Baso # (Auto) ESR 3 D-Dimer < 200 ABG pH ABG pCO2 ABG pO2 ABG HCO3 ABG Total CO2 ABG O2 Saturation ABG Base Excess VBG pH FiO2 Sodium Potassium Chloride Carbon Dioxide BUN Creatinine Estimated GFR BUN/Creatinine Ratio Glucose Hemoglobin A1c Lactate Calcium Total Bilirubin AST ALT Alkaline Phosphatase Total Creatine Kinase CK-MB (CK-2) CK-MB (CK-2) Rel Index Troponin I C-Reactive Protein NT-Pro-B Natriuret Pep Total Protein Albumin Globulin Albumin/Globulin Ratio Lipase Urine Color Urine Appearance Urine pH Ur Specific [place] Urine Protein Urine Glucose (UA) Urine Ketones Urine Occult Blood Urine Nitrate Urine Bilirubin Urine Urobilinogen Ur Leukocyte Esterase Urine RBC Urine WBC Amorphous Sediment Urine Bacteria Hyaline Casts Ur Culture Indicated? Ketones SARS-CoV-2 (PCR) Positive H 02/11/21 02/11/21 02/11/21 09:10 09:10 09:10 WBC RBC Hgb Hct MCV MCH MCHC RDW Plt Count Neut % (Auto) Lymph % (Auto) [place] % (Auto) Eos % (Auto) Baso % (Auto) Neut # (Auto) Lymph # (Auto) [place] # (Auto) Eos # (Auto) Baso # (Auto) ESR D-Dimer ABG pH ABG pCO2 ABG pO2 ABG HCO3 ABG Total CO2 ABG O2 Saturation ABG Base Excess VBG pH FiO2 Sodium Potassium Chloride Carbon Dioxide BUN Creatinine Estimated GFR BUN/Creatinine Ratio Glucose Hemoglobin A1c 12.4 H Lactate 1.6 Calcium Total Bilirubin AST ALT Alkaline Phosphatase Total Creatine Kinase CK-MB (CK-2) CK-MB (CK-2) Rel Index Troponin I C-Reactive Protein < 0.5 NT-Pro-B Natriuret Pep 12 Total Protein Albumin Globulin Albumin/Globulin Ratio Lipase Urine Color Urine Appearance Urine pH Ur Specific [place] Urine Protein Urine Glucose (UA) Urine Ketones Urine Occult Blood Urine Nitrate Urine Bilirubin Urine Urobilinogen Ur Leukocyte Esterase Urine RBC Urine WBC Amorphous Sediment Urine Bacteria Hyaline Casts Ur Culture Indicated? Ketones SARS-CoV-2 (PCR) 02/11/21 02/11/21 02/11/21 09:10 10:12 10:15 WBC RBC Hgb Hct MCV MCH MCHC RDW Plt Count Neut % (Auto) Lymph % (Auto) [place] % (Auto) Eos % (Auto) Baso % (Auto) Neut # (Auto) Lymph # (Auto) [place] # (Auto) Eos # (Auto) Baso # (Auto) ESR D-Dimer ABG pH 7.14 L* ABG pCO2 12.5 L* ABG pO2 121 H ABG HCO3 4 L ABG Total CO2 < 5 L ABG O2 Saturation 98 ABG Base Excess -25.0 L VBG pH FiO2 21 Sodium Potassium Chloride Carbon Dioxide BUN Creatinine Estimated GFR BUN/Creatinine Ratio Glucose Hemoglobin A1c Lactate Calcium Total Bilirubin AST ALT Alkaline Phosphatase Total Creatine Kinase CK-MB (CK-2) CK-MB (CK-2) Rel Index Troponin I C-Reactive Protein NT-Pro-B Natriuret Pep Total Protein Albumin Globulin Albumin/Globulin Ratio Lipase Urine Color Yellow Urine Appearance Clear Urine pH 5.0 Ur Specific [place] 1.025 Urine Protein 1+ H Urine Glucose (UA) 1+ H Urine Ketones 3+ H Urine Occult Blood 3+ H Urine Nitrate Negative Urine Bilirubin Negative Urine Urobilinogen 0.2 Ur Leukocyte Esterase Negative Urine RBC 5-10/hpf H Urine WBC None seen Amorphous Sediment 2+ Urine Bacteria None seen Hyaline Casts 1-5/lpf Ur Culture Indicated? Cult not indicated Ketones 10.87 H SARS-CoV-2 (PCR) 02/11/21 02/11/21 13:50 13:51 WBC RBC Hgb Hct MCV MCH MCHC RDW Plt Count Neut % (Auto) Lymph % (Auto) [place] % (Auto) Eos % (Auto) Baso % (Auto) Neut # (Auto) Lymph # (Auto) [place] # (Auto) Eos # (Auto) Baso # (Auto) ESR D-Dimer ABG pH ABG pCO2 ABG pO2 ABG HCO3 ABG Total CO2 ABG O2 Saturation ABG Base Excess VBG pH 7.21 L FiO2 Sodium 142 Potassium 4.1 Chloride 110 H Carbon Dioxide 11 L BUN 13 Creatinine 0.85 Estimated GFR > 60.0 BUN/Creatinine Ratio 15.3 Glucose 288 H D Hemoglobin A1c Lactate Calcium 8.5 Total Bilirubin AST ALT Alkaline Phosphatase Total Creatine Kinase CK-MB (CK-2) CK-MB (CK-2) Rel Index Troponin I C-Reactive Protein NT-Pro-B Natriuret Pep Total Protein Albumin Globulin Albumin/Globulin Ratio Lipase Urine Color Urine Appearance Urine pH Ur Specific [place] Urine Protein Urine Glucose (UA) Urine Ketones Urine Occult Blood Urine Nitrate Urine Bilirubin Urine Urobilinogen Ur Leukocyte Esterase Urine RBC Urine WBC Amorphous Sediment Urine Bacteria Hyaline Casts Ur Culture Indicated? Ketones SARS-CoV-2 (PCR) Assessment & Plan Assessment & Plan narrative: This is a 45-year-old male, reportedly a type 2 diabetic, who recently recovered from COVID with what appears to have been a mild case and then subsequently last week received his COVID booster shot. Three days ago he stopped checking his blood sugars because he had run out of the monitor pads for his continues glucose monitoring device and did not know what his blood sugars were. He now presents with shortness of breath and is found to have a blood sugar of 508 and an anion gap of 21 with a pH of 7.14 and 7.21 on his venous blood gases. Diabetic ketoacidosis, present on admission. Active. -continue intensive care unit DKA protocol which so far is maintaining normal potassium, correcting his acidosis on VBG and is expected to drop his anion gap in the next 24-48 hours towards normal. -continue D5, NS with potassium chloride, insulin drip per protocol -acidosis/ketosis points against this being hyperglycemic hyperosmolar syndrome despite that being more typical in type 2 diabetes Type 2 diabetes mellitus, present on admission. Active. -A1c of 12.4 consistent with more than just 3 days of substandard continues glucose monitoring and insulin dosing -continue insulin drip and transition back to his Lantus/lispro regimen when anion gap is closed and he is eating. -continue lisinopril Covid Positive Status, presnt on admission. Chronic. -The CXR is normal. He was ill with Covid over one month ago. -he is Covid immunized X 3 -He has no hypoxia or other directly related Covid symptoms -This is likely a prolonged Covid positive viral process and not a true ongoing infection. Opioid use disorder, present on admission. Chronic. -awaiting med reconciliation for decision on continuation of his Subutex. Subcutaneous enoxaparin for DVT prevention Time Spent With Patient Critical Care time: I spent a total of [] minutes of critical care time on this patient's care today; this time is exclusive of procedural time.
[2021-02-11] MEDS: lisinopriL 20 MG TABLET PO (16:22)
[2021-02-11 18:07] LABS: BUN Creatinine Ratio 17.1 (6-22); Blood Urea Nitrogen 12 mg/dL (9-20); Calcium 8.5 mg/dL (8.4-10.2); Carbon Dioxide 15 mmol/L (22-32); Chloride 112 mmol/L (98-107); Estimated Glomerular Filt Rate > 60.0 mL/min (>60); Glucose 261 mg/dL (70-100); HEMOLYSIS < 15 (0-50); Sodium 139 mmol/L (137-145)
--- NOTE | 2021-02-11 22:20 | PM.CN.EICU ---
History of Present Illness Consult details Chief complaint: Trouble breathing, palpitations :: This patient was seen via real time interactive two-way audiovisual telecommunication. 45 y.o. male w/ PMHx of T2DM on insulin, pancreatitis, 1/2 ppd tobacco, and Suboxone use who presented with above symptoms. Onset was 3 days ago and symptoms have been worsening. ED investigation revealed DKA with AG of 21, HCO3 of 4. HgbA1C is 12.4%. He was started on the DKA protocol. At the time of camera activation, insulin was infusing at 6.8 units/hr. ON LICENSE OF [facility] Medical History Cholecystitis with cholelithiasis Nicotine addiction Opioid use disorder Pancreatitis Type 2 diabetes mellitus Surgical History H/O hand surgery Status post cholecystectomy Family History Mother Diabetes mellitus Father Cancer Social History household members: significant other Smoking Status: Current every day smoker Current Medications Current Medications Medications: Home Medications lisinopril 20 mg tablet 20 mg PO QAM #0 11/10/11 [History Confirmed 02/11/21] aspirin 81 mg tablet 81 mg PO QAM 02/11/21 [History Confirmed 02/11/21] buprenorphine 12 mg-naloxone 3 mg sublingual film 1 film BUCCAL BID 02/11/21 [History Confirmed 02/11/21] insulin glargine 100 unit/mL (3 mL) subcutaneous pen (Lantus Solostar U-100 Insulin) 34 unit SQ QHS 02/11/21 [History Confirmed 02/11/21] Visit Medications (administered) Generic Name Dose Route Start Last Admin Trade Name Freq PRN Reason Stop Dose Admin Aspirin 81 mg 02/11/21 16:15 02/11/21 16:22 Aspirin Ec 81 Mg Tablet PO Not Given DAILY BRUNILDA INSULIN DRIP PREMIX 100 unit in 100 mls @ 6 mls/hr 02/11/21 11:15 02/11/21 19:35 Myxredlin Drip Premix IV 8.6 mls/hr TITRATE BRUNILDA Titration Protocol Dextrose/Sodium Chloride 1,000 mls @ 129 mls/hr 02/11/21 13:15 02/11/21 21:21 Dextrose 5%-0.45% Ns IV 129 mls/hr CONT BRUNILDA Administration Protocol Lisinopril 20 mg 02/11/21 16:15 02/11/21 16:22 Lisinopril 20 Mg Tablet PO 20 mg DAILY BRUNILDA Administration Review of Systems Review of Systems Narrative: not performed as patient was sleeping Exam Vital Signs (past 8 hours): - 02/11/21 14:30 02/11/21 15:00 02/11/21 15:30 Temperature Pulse Rate 104 H 104 H 101 H Respiratory Rate 14 15 14 Blood Pressure 116/75 102/68 Pulse Oximetry 97 98 99 02/11/21 16:00 02/11/21 16:22 02/11/21 16:30 Temperature Pulse Rate 102 H 100 H 101 H Respiratory Rate 13 14 Blood Pressure 110/67 110/67 111/68 Pulse Oximetry 98 98 02/11/21 17:00 02/11/21 17:30 02/11/21 17:35 Temperature 98.3 F Pulse Rate 98 H 106 H Respiratory Rate 15 18 Blood Pressure 119/71 Pulse Oximetry 98 02/11/21 18:00 02/11/21 18:24 02/11/21 18:30 Temperature Pulse Rate 100 H 97 H 98 H Respiratory Rate 15 15 14 Blood Pressure 127/67 118/66 Pulse Oximetry 97 96 02/11/21 19:30 02/11/21 20:00 02/11/21 20:27 Temperature 97.9 F Pulse Rate 92 H 92 H Respiratory Rate 14 14 Blood Pressure 118/65 Pulse Oximetry 96 92 02/11/21 20:59 02/11/21 21:00 Temperature Pulse Rate 92 H 91 H Respiratory Rate 14 14 Blood Pressure 110/63 Pulse Oximetry 98 97 Oxygen Delivery Method Room Air Narrative Exam Narrative: no acute distress, sleeping Resp Effort & Inspection: normal respiratory effort Objective Labs Result Diagrams: 02/11/21 09:10 02/11/21 17:20 Labs: Laboratory Results - last 24 hr 02/11/21 02/11/21 02/11/21 08:30 09:10 09:10 WBC 9.5 RBC 5.63 Hgb 16.6 Hct 49.6 MCV 88.1 MCH 29.5 MCHC 33.5 RDW 14.5 Plt Count 269 Neut % (Auto) 89.8 H Lymph % (Auto) 7.0 L [place] % (Auto) 2.9 L Eos % (Auto) 0.1 L Baso % (Auto) 0.2 Neut # (Auto) 8600 H Lymph # (Auto) 700 L [place] # (Auto) 300 Eos # (Auto) 0 Baso # (Auto) 0 ESR D-Dimer ABG pH ABG pCO2 ABG pO2 ABG HCO3 ABG Total CO2 ABG O2 Saturation ABG Base Excess VBG pH FiO2 Sodium 140 Potassium 4.8 Chloride 103 Carbon Dioxide 6 L* BUN 13 Creatinine 1.15 Estimated GFR > 60.0 BUN/Creatinine Ratio 11.3 Glucose 508 H* Hemoglobin A1c Lactate Calcium 9.2 Total Bilirubin 0.6 AST 18 ALT 18 Alkaline Phosphatase 119 Total Creatine Kinase 41 L CK-MB (CK-2) TNP CK-MB (CK-2) Rel Index TNP Troponin I < 0.012 C-Reactive Protein NT-Pro-B Natriuret Pep Total Protein 8.8 H Albumin 5.1 H Globulin 3.7 Albumin/Globulin Ratio 1.4 Lipase 48 Urine Color Urine Appearance Urine pH Ur Specific [place] Urine Protein Urine Glucose (UA) Urine Ketones Urine Occult Blood Urine Nitrate Urine Bilirubin Urine Urobilinogen Ur Leukocyte Esterase Urine RBC Urine WBC Amorphous Sediment Urine Bacteria Hyaline Casts Ur Culture Indicated? Ketones SARS-CoV-2 (PCR) Positive H 02/11/21 02/11/21 02/11/21 09:10 09:10 09:10 WBC RBC Hgb Hct MCV MCH MCHC RDW Plt Count Neut % (Auto) Lymph % (Auto) [place] % (Auto) Eos % (Auto) Baso % (Auto) Neut # (Auto) Lymph # (Auto) [place] # (Auto) Eos # (Auto) Baso # (Auto) ESR 3 D-Dimer < 200 ABG pH ABG pCO2 ABG pO2 ABG HCO3 ABG Total CO2 ABG O2 Saturation ABG Base Excess VBG pH FiO2 Sodium Potassium Chloride Carbon Dioxide BUN Creatinine Estimated GFR BUN/Creatinine Ratio Glucose Hemoglobin A1c Lactate Calcium Total Bilirubin AST ALT Alkaline Phosphatase Total Creatine Kinase CK-MB (CK-2) CK-MB (CK-2) Rel Index Troponin I C-Reactive Protein NT-Pro-B Natriuret Pep Total Protein Albumin Globulin Albumin/Globulin Ratio Lipase Urine Color Urine Appearance Urine pH Ur Specific [place] Urine Protein Urine Glucose (UA) Urine Ketones Urine Occult Blood Urine Nitrate Urine Bilirubin Urine Urobilinogen Ur Leukocyte Esterase Urine RBC Urine WBC Amorphous Sediment Urine Bacteria Hyaline Casts Ur Culture Indicated? Ketones SARS-CoV-2 (PCR) Positive H 02/11/21 02/11/21 02/11/21 09:10 09:10 09:10 WBC RBC Hgb Hct MCV MCH MCHC RDW Plt Count Neut % (Auto) Lymph % (Auto) [place] % (Auto) Eos % (Auto) Baso % (Auto) Neut # (Auto) Lymph # (Auto) [place] # (Auto) Eos # (Auto) Baso # (Auto) ESR D-Dimer ABG pH ABG pCO2 ABG pO2 ABG HCO3 ABG Total CO2 ABG O2 Saturation ABG Base Excess VBG pH FiO2 Sodium Potassium Chloride Carbon Dioxide BUN Creatinine Estimated GFR BUN/Creatinine Ratio Glucose Hemoglobin A1c 12.4 H Lactate 1.6 Calcium Total Bilirubin AST ALT Alkaline Phosphatase Total Creatine Kinase CK-MB (CK-2) CK-MB (CK-2) Rel Index Troponin I C-Reactive Protein < 0.5 NT-Pro-B Natriuret Pep 12 Total Protein Albumin Globulin Albumin/Globulin Ratio Lipase Urine Color Urine Appearance Urine pH Ur Specific [place] Urine Protein Urine Glucose (UA) Urine Ketones Urine Occult Blood Urine Nitrate Urine Bilirubin Urine Urobilinogen Ur Leukocyte Esterase Urine RBC Urine WBC Amorphous Sediment Urine Bacteria Hyaline Casts Ur Culture Indicated? Ketones SARS-CoV-2 (PCR) 02/11/21 02/11/21 02/11/21 09:10 10:12 10:15 WBC RBC Hgb Hct MCV MCH MCHC RDW Plt Count Neut % (Auto) Lymph % (Auto) [place] % (Auto) Eos % (Auto) Baso % (Auto) Neut # (Auto) Lymph # (Auto) [place] # (Auto) Eos # (Auto) Baso # (Auto) ESR D-Dimer ABG pH 7.14 L* ABG pCO2 12.5 L* ABG pO2 121 H ABG HCO3 4 L ABG Total CO2 < 5 L ABG O2 Saturation 98 ABG Base Excess -25.0 L VBG pH FiO2 21 Sodium Potassium Chloride Carbon Dioxide BUN Creatinine Estimated GFR BUN/Creatinine Ratio Glucose Hemoglobin A1c Lactate Calcium Total Bilirubin AST ALT Alkaline Phosphatase Total Creatine Kinase CK-MB (CK-2) CK-MB (CK-2) Rel Index Troponin I C-Reactive Protein NT-Pro-B Natriuret Pep Total Protein Albumin Globulin Albumin/Globulin Ratio Lipase Urine Color Yellow Urine Appearance Clear Urine pH 5.0 Ur Specific [place] 1.025 Urine Protein 1+ H Urine Glucose (UA) 1+ H Urine Ketones 3+ H Urine Occult Blood 3+ H Urine Nitrate Negative Urine Bilirubin Negative Urine Urobilinogen 0.2 Ur Leukocyte Esterase Negative Urine RBC 5-10/hpf H Urine WBC None seen Amorphous Sediment 2+ Urine Bacteria None seen Hyaline Casts 1-5/lpf Ur Culture Indicated? Cult not indicated Ketones 10.87 H SARS-CoV-2 (PCR) 02/11/21 02/11/21 02/11/21 13:50 13:51 17:20 WBC RBC Hgb Hct MCV MCH MCHC RDW Plt Count Neut % (Auto) Lymph % (Auto) [place] % (Auto) Eos % (Auto) Baso % (Auto) Neut # (Auto) Lymph # (Auto) [place] # (Auto) Eos # (Auto) Baso # (Auto) ESR D-Dimer ABG pH ABG pCO2 ABG pO2 ABG HCO3 ABG Total CO2 ABG O2 Saturation ABG Base Excess VBG pH 7.21 L FiO2 Sodium 142 139 Potassium 4.1 4.0 Chloride 110 H 112 H Carbon Dioxide 11 L 15 L BUN 13 12 Creatinine 0.85 0.70 Estimated GFR > 60.0 > 60.0 BUN/Creatinine Ratio 15.3 17.1 Glucose 288 H D 261 H Hemoglobin A1c Lactate Calcium 8.5 8.5 Total Bilirubin AST ALT Alkaline Phosphatase Total Creatine Kinase CK-MB (CK-2) CK-MB (CK-2) Rel Index Troponin I C-Reactive Protein NT-Pro-B Natriuret Pep Total Protein Albumin Globulin Albumin/Globulin Ratio Lipase Urine Color Urine Appearance Urine pH Ur Specific [place] Urine Protein Urine Glucose (UA) Urine Ketones Urine Occult Blood Urine Nitrate Urine Bilirubin Urine Urobilinogen Ur Leukocyte Esterase Urine RBC Urine WBC Amorphous Sediment Urine Bacteria Hyaline Casts Ur Culture Indicated? Ketones SARS-CoV-2 (PCR) Assessment & Plan Assessment and plan (1) DKA, type 2: Status: Acute Plan: -Continue DKA protocol (2) Opioid dependence: Status: Acute Plan: -Continue buprenorphone-naloxone Time Spent With Patient Critical Care time: I spent a total of [] minutes of critical care time on this patient's care today; this time is exclusive of procedural time.
--- NOTE | 2021-02-11 22:20 | PC.NURSE ---
Addendum entered by Marixa Tillman R.N. 02/12/21 04:15: Anion gap closed since prior to admission, blood sugars stable, hospitalist informed. SQ lantus administered; continuous insulin and dextrose infusions stopped two hours later. Will recheck BMP/blood glucose with morning labs. Pt resting comfortably. Original Note: Admission/Shift: Report received from ED. Care assumed 1950. Pt. amb[place] bed. VSS on room air. A&Ox4. Covid positive with precautions in place; however, he has had Covid for over 4 weeks and is being admitted for unrelated symptoms. Denies pain, nausea. On insulin gtt and D5-1/2 NS per protocol.
[2021-02-11 22:26] LABS: BUN Creatinine Ratio 22.8 (6-22); Blood Urea Nitrogen 13 mg/dL (9-20); Calcium 8.3 mg/dL (8.4-10.2); Carbon Dioxide 18 mmol/L (22-32); Chloride 113 mmol/L (98-107); Estimated Glomerular Filt Rate > 60.0 mL/min (>60); Glucose 175 mg/dL (70-100); HEMOLYSIS < 15 (0-50); Potassium 3.4 mmol/L (3.4-5.1); Sodium 139 mmol/L (137-145)
[2021-02-11] MEDS: BUPRENORPHINE/NALOXONE 8MG/2MG 1 TAB 1.5 TAB SL (22:36)
[2021-02-11] MEDS: INSULIN DRIP PREMIX 100 UNIT/100 ML PLAST..BAG 6.8 UNIT IV (22:45)
[2021-02-12] VITALS (7 sets, daily range): BP systolic 103–118; BP diastolic 57–74; PULSE 78–92; RESP 12–16; TEMP 36.9–37.5; O2SAT 94–98
[2021-02-12] MEDS: INSULIN GLARGINE 100 UNIT/ML 3ML PEN 20 UNIT SUBCUT ×2 (00:14→10:42)
[2021-02-12 04:51] LABS: Add Manual Diff / Slide Review NO; Basophils Absolute Auto 0 /uL (0-100); Basophils Percent Auto 0.5 % (0-2); Eosinophils Absolute Auto 0 /uL (0-450); Eosinophils Percent Auto 0.7 % (2-4); Hematocrit 36.9 % (41-53); Hemoglobin 12.7 g/dL (13.5-17.5); Lymphocytes Absolute Auto 1300 /uL (1100-4500); Lymphocytes Percent Auto 20.5 % (25-40); Mean Corpuscular HGB Conc 34.5 % (30-36); Mean Corpuscular Hemoglobin 29.2 PG (26-34); Mean Corpuscular Volume 84.9 fL (80-100); Monocytes Absolute Auto 500 /uL (0-900); Monocytes Percent Auto 8.3 % (3-14); Neutrophils Absolute Auto 4600 /uL (1500-7000); Platelet Count 217 X10^3/uL (150-400); Red Blood Cell Count 4.34 X10^6/uL (4.5-5.9); Red Cell Distribution Width 13.9 % (11.6-14.8); White Blood Cell Count 6.5 X10^3/uL (4.5-11.0)
[2021-02-12 04:54] LABS: Alanine Aminotransferase 11 IU/L (<50); Albumin 3.2 g/dL (3.5-5.0); Albumin Globulin Ratio 1.2 (1.0-2.8); Alkaline Phosphatase 61 U/L (38-126); Aspartate Aminotransferase 14 IU/L (17-59); BUN Creatinine Ratio 22.4 (6-22); Bilirubin Total 0.4 mg/dL (0.2-1.3); Blood Urea Nitrogen 13 mg/dL (9-20); Calcium 8.5 mg/dL (8.4-10.2); Carbon Dioxide 16 mmol/L (22-32); Chloride 109 mmol/L (98-107); Estimated Glomerular Filt Rate > 60.0 mL/min (>60); Globulin 2.7 g/dL (1.7-4.1); Glucose 282 mg/dL (70-100); HEMOLYSIS < 15 (0-50); Potassium 3.3 mmol/L (3.4-5.1); Sodium 136 mmol/L (137-145); Total Protein 5.9 g/dL (6.3-8.2)
[2021-02-12] MEDS: POTASSIUM CHLORIDE 20 MEQ TAB 40 MEQ PO (05:28)
[2021-02-12 08:23] LABS: Blood Urea Nitrogen 13 mg/dL (9-20); Calcium 8.6 mg/dL (8.4-10.2); Carbon Dioxide 15 mmol/L (22-32); Chloride 108 mmol/L (98-107); Estimated Glomerular Filt Rate > 60.0 mL/min (>60); Glucose 320 mg/dL (70-100); HEMOLYSIS < 15 (0-50); Potassium 3.8 mmol/L (3.4-5.1); Sodium 138 mmol/L (137-145)
--- NOTE | 2021-02-12 08:50 | P.DS_ITS ---
History of Present Illness History of Present Illness Date Patient Seen: 02/12/21 Chief complaint: Trouble breathing, palpitations Narrative: this is a 45-year-old male with history of insulin-dependent diabetes was admitted to the hospital with DKA. Reportedly patient stated that he has glucometer is not been working well and he was told that he needed a prescription for 1 of his providers prior to having a new 1 giving to him. He denied any injury. No shortness of breath. No chest pain. No chest palpitations. he denies any change in vision. No heat or cold intolerance. No polyuria for any polydipsia. Discharge Providers Provider Date of admission: 02/11/21 17:39 Discharge Date: 02/12/21 Primary care physician: 02/12/21 Consults: 02/11/21 15:27 Consult to Tele-program rep Routine Comment: Consulting Provider: [facility] [employer] Reason for consultation: [employer] services 02/12/21 05:18 Consult to Dietitian, Adult Routine Comment: Reason For Exam: diabetes Discharge provider: Sally Jorge DO Summary Hospital Course Discharge Diagnosis: DKA. Resolved chronic pain syndrome. Continue home meds possible medical noncompliance. Counseling given Hospital Course: PLEASANT 45-YEAR-OLD MALE ADMITTED TO THE HOSPITAL WITH DKA. HE HAS BEEN WITHOUT HIS GLUCOMETER AND HAS NOT BEEN ABLE TO CHECK HIS BLOOD SUGAR LATELY REPORTEDLY. HE WAS TREATED WITH AGGRESSIVE INSULIN THERAPY AND RESPONDED VERY WELL TO TREATMENT. AT THIS TIME HE IS BACK TO BASELINE. HE WILL BE DISCHARGED TO HOME. ADDITIONALLY WILL BE DEFERRED TO HIS OUTPATIENT PROVIDERS EXTENSIVE COUNSELING GIVEN PRIOR TO DISCHARGE Exam Vital Signs (past 8 hours): - 02/12/21 01:00 02/12/21 02:00 02/12/21 03:00 Temperature Pulse Rate 87 82 84 Respiratory Rate 13 12 15 Blood Pressure 115/67 106/60 103/59 L Pulse Oximetry 97 94 94 02/12/21 04:00 02/12/21 08:03 Temperature 98.4 F 98.7 F Pulse Rate 78 85 Respiratory Rate 13 14 Blood Pressure 103/57 L 108/69 Pulse Oximetry 96 97 Oxygen Delivery Method Room Air Oxygen Flow Rate 0 Narrative Exam Narrative: appears older than stated age Const Other: alert awake oriented x3. Well-nourished HENMT Other: moist mucous membrane. Fair dentition for age Eyes Other: eomi. no jaundice Neck Other: supple. No lymphadenopathy. No carotid bruit. Chest Other: Normal chest Arise. Sign of trauma Resp Other: clear to auscultation bilaterally. No rales. No wheezing. No crackles Cardio Other: regular rate. No rub. PMI isn't displaced. GI Other: Bowel sounds present in all 4 quadrants. No mass. Skin Other: Normal for ethnicity. No open lesions Neuro Other: cranial nerves 2-12 appear grossly intact. No focal neurological deficit Extrem Other: no edema. No cyanosis no clubbing Psych Other: Alert, awake, oriented x3. No anxiety. Calm. Cooperative Objective Labs Result Diagrams: 02/12/21 04:15 02/12/21 12:25 Labs: Laboratory Results - last 24 hr 02/11/21 02/11/21 02/11/21 08:30 09:10 09:10 WBC 9.5 RBC 5.63 Hgb 16.6 Hct 49.6 MCV 88.1 MCH 29.5 MCHC 33.5 RDW 14.5 Plt Count 269 Neut % (Auto) 89.8 H Lymph % (Auto) 7.0 L [place] % (Auto) 2.9 L Eos % (Auto) 0.1 L Baso % (Auto) 0.2 Neut # (Auto) 8600 H Lymph # (Auto) 700 L [place] # (Auto) 300 Eos # (Auto) 0 Baso # (Auto) 0 ESR D-Dimer ABG pH ABG pCO2 ABG pO2 ABG HCO3 ABG Total CO2 ABG O2 Saturation ABG Base Excess VBG pH FiO2 Sodium 140 Potassium 4.8 Chloride 103 Carbon Dioxide 6 L* BUN 13 Creatinine 1.15 Estimated GFR > 60.0 BUN/Creatinine Ratio 11.3 Glucose 508 H* Hemoglobin A1c Lactate Calcium 9.2 Total Bilirubin 0.6 AST 18 ALT 18 Alkaline Phosphatase 119 Total Creatine Kinase 41 L CK-MB (CK-2) TNP CK-MB (CK-2) Rel Index TNP Troponin I < 0.012 C-Reactive Protein NT-Pro-B Natriuret Pep Total Protein 8.8 H Albumin 5.1 H Globulin 3.7 Albumin/Globulin Ratio 1.4 Lipase 48 Urine Color Urine Appearance Urine pH Ur Specific [place] Urine Protein Urine Glucose (UA) Urine Ketones Urine Occult Blood Urine Nitrate Urine Bilirubin Urine Urobilinogen Ur Leukocyte Esterase Urine RBC Urine WBC Amorphous Sediment Urine Bacteria Hyaline Casts Ur Culture Indicated? Nasal Screen MRSA (PCR) Ketones SARS-CoV-2 (PCR) Positive H 02/11/21 02/11/21 02/11/21 09:10 09:10 09:10 WBC RBC Hgb Hct MCV MCH MCHC RDW Plt Count Neut % (Auto) Lymph % (Auto) [place] % (Auto) Eos % (Auto) Baso % (Auto) Neut # (Auto) Lymph # (Auto) [place] # (Auto) Eos # (Auto) Baso # (Auto) ESR 3 D-Dimer < 200 ABG pH ABG pCO2 ABG pO2 ABG HCO3 ABG Total CO2 ABG O2 Saturation ABG Base Excess VBG pH FiO2 Sodium Potassium Chloride Carbon Dioxide BUN Creatinine Estimated GFR BUN/Creatinine Ratio Glucose Hemoglobin A1c Lactate Calcium Total Bilirubin AST ALT Alkaline Phosphatase Total Creatine Kinase CK-MB (CK-2) CK-MB (CK-2) Rel Index Troponin I C-Reactive Protein NT-Pro-B Natriuret Pep Total Protein Albumin Globulin Albumin/Globulin Ratio Lipase Urine Color Urine Appearance Urine pH Ur Specific [place] Urine Protein Urine Glucose (UA) Urine Ketones Urine Occult Blood Urine Nitrate Urine Bilirubin Urine Urobilinogen Ur Leukocyte Esterase Urine RBC Urine WBC Amorphous Sediment Urine Bacteria Hyaline Casts Ur Culture Indicated? Nasal Screen MRSA (PCR) Ketones SARS-CoV-2 (PCR) Positive H 02/11/21 02/11/21 02/11/21 09:10 09:10 09:10 WBC RBC Hgb Hct MCV MCH MCHC RDW Plt Count Neut % (Auto) Lymph % (Auto) [place] % (Auto) Eos % (Auto) Baso % (Auto) Neut # (Auto) Lymph # (Auto) [place] # (Auto) Eos # (Auto) Baso # (Auto) ESR D-Dimer ABG pH ABG pCO2 ABG pO2 ABG HCO3 ABG Total CO2 ABG O2 Saturation ABG Base Excess VBG pH FiO2 Sodium Potassium Chloride Carbon Dioxide BUN Creatinine Estimated GFR BUN/Creatinine Ratio Glucose Hemoglobin A1c 12.4 H Lactate 1.6 Calcium Total Bilirubin AST ALT Alkaline Phosphatase Total Creatine Kinase CK-MB (CK-2) CK-MB (CK-2) Rel Index Troponin I C-Reactive Protein < 0.5 NT-Pro-B Natriuret Pep 12 Total Protein Albumin Globulin Albumin/Globulin Ratio Lipase Urine Color Urine Appearance Urine pH Ur Specific [place] Urine Protein Urine Glucose (UA) Urine Ketones Urine Occult Blood Urine Nitrate Urine Bilirubin Urine Urobilinogen Ur Leukocyte Esterase Urine RBC Urine WBC Amorphous Sediment Urine Bacteria Hyaline Casts Ur Culture Indicated? Nasal Screen MRSA (PCR) Ketones SARS-CoV-2 (PCR) 02/11/21 02/11/21 02/11/21 09:10 10:12 10:15 WBC RBC Hgb Hct MCV MCH MCHC RDW Plt Count Neut % (Auto) Lymph % (Auto) [place] % (Auto) Eos % (Auto) Baso % (Auto) Neut # (Auto) Lymph # (Auto) [place] # (Auto) Eos # (Auto) Baso # (Auto) ESR D-Dimer ABG pH 7.14 L* ABG pCO2 12.5 L* ABG pO2 121 H ABG HCO3 4 L ABG Total CO2 < 5 L ABG O2 Saturation 98 ABG Base Excess -25.0 L VBG pH FiO2 21 Sodium Potassium Chloride Carbon Dioxide BUN Creatinine Estimated GFR BUN/Creatinine Ratio Glucose Hemoglobin A1c Lactate Calcium Total Bilirubin AST ALT Alkaline Phosphatase Total Creatine Kinase CK-MB (CK-2) CK-MB (CK-2) Rel Index Troponin I C-Reactive Protein NT-Pro-B Natriuret Pep Total Protein Albumin Globulin Albumin/Globulin Ratio Lipase Urine Color Yellow Urine Appearance Clear Urine pH 5.0 Ur Specific [place] 1.025 Urine Protein 1+ H Urine Glucose (UA) 1+ H Urine Ketones 3+ H Urine Occult Blood 3+ H Urine Nitrate Negative Urine Bilirubin Negative Urine Urobilinogen 0.2 Ur Leukocyte Esterase Negative Urine RBC 5-10/hpf H Urine WBC None seen Amorphous Sediment 2+ Urine Bacteria None seen Hyaline Casts 1-5/lpf Ur Culture Indicated? Cult not indicated Nasal Screen MRSA (PCR) Ketones 10.87 H SARS-CoV-2 (PCR) 02/11/21 02/11/21 02/11/21 13:50 13:51 17:20 WBC RBC Hgb Hct MCV MCH MCHC RDW Plt Count Neut % (Auto) Lymph % (Auto) [place] % (Auto) Eos % (Auto) Baso % (Auto) Neut # (Auto) Lymph # (Auto) [place] # (Auto) Eos # (Auto) Baso # (Auto) ESR D-Dimer ABG pH ABG pCO2 ABG pO2 ABG HCO3 ABG Total CO2 ABG O2 Saturation ABG Base Excess VBG pH 7.21 L FiO2 Sodium 142 139 Potassium 4.1 4.0 Chloride 110 H 112 H Carbon Dioxide 11 L 15 L BUN 13 12 Creatinine 0.85 0.70 Estimated GFR > 60.0 > 60.0 BUN/Creatinine Ratio 15.3 17.1 Glucose 288 H D 261 H Hemoglobin A1c Lactate Calcium 8.5 8.5 Total Bilirubin AST ALT Alkaline Phosphatase Total Creatine Kinase CK-MB (CK-2) CK-MB (CK-2) Rel Index Troponin I C-Reactive Protein NT-Pro-B Natriuret Pep Total Protein Albumin Globulin Albumin/Globulin Ratio Lipase Urine Color Urine Appearance Urine pH Ur Specific [place] Urine Protein Urine Glucose (UA) Urine Ketones Urine Occult Blood Urine Nitrate Urine Bilirubin Urine Urobilinogen Ur Leukocyte Esterase Urine RBC Urine WBC Amorphous Sediment Urine Bacteria Hyaline Casts Ur Culture Indicated? Nasal Screen MRSA (PCR) Ketones SARS-CoV-2 (PCR) 02/11/21 02/11/21 02/12/21 20:05 21:55 04:15 WBC 6.5 RBC 4.34 L Hgb 12.7 L Hct 36.9 L MCV 84.9 D MCH 29.2 MCHC 34.5 RDW 13.9 Plt Count 217 Neut % (Auto) 70.0 Lymph % (Auto) 20.5 L [place] % (Auto) 8.3 Eos % (Auto) 0.7 L Baso % (Auto) 0.5 Neut # (Auto) 4600 Lymph # (Auto) 1300 [place] # (Auto) 500 Eos # (Auto) 0 Baso # (Auto) 0 ESR D-Dimer ABG pH ABG pCO2 ABG pO2 ABG HCO3 ABG Total CO2 ABG O2 Saturation ABG Base Excess VBG pH FiO2 Sodium 139 Potassium 3.4 Chloride 113 H Carbon Dioxide 18 L BUN 13 Creatinine 0.57 L Estimated GFR > 60.0 BUN/Creatinine Ratio 22.8 H Glucose 175 H Hemoglobin A1c Lactate Calcium 8.3 L Total Bilirubin AST ALT Alkaline Phosphatase Total Creatine Kinase CK-MB (CK-2) CK-MB (CK-2) Rel Index Troponin I C-Reactive Protein NT-Pro-B Natriuret Pep Total Protein Albumin Globulin Albumin/Globulin Ratio Lipase Urine Color Urine Appearance Urine pH Ur Specific [place] Urine Protein Urine Glucose (UA) Urine Ketones Urine Occult Blood Urine Nitrate Urine Bilirubin Urine Urobilinogen Ur Leukocyte Esterase Urine RBC Urine WBC Amorphous Sediment Urine Bacteria Hyaline Casts Ur Culture Indicated? Nasal Screen MRSA (PCR) Negative for mrsa Ketones SARS-CoV-2 (PCR) 02/12/21 02/12/21 04:15 08:00 WBC RBC Hgb Hct MCV MCH MCHC RDW Plt Count Neut % (Auto) Lymph % (Auto) [place] % (Auto) Eos % (Auto) Baso % (Auto) Neut # (Auto) Lymph # (Auto) [place] # (Auto) Eos # (Auto) Baso # (Auto) ESR D-Dimer ABG pH ABG pCO2 ABG pO2 ABG HCO3 ABG Total CO2 ABG O2 Saturation ABG Base Excess VBG pH FiO2 Sodium 136 L 138 Potassium 3.3 L 3.8 Chloride 109 H 108 H Carbon Dioxide 16 L 15 L BUN 13 13 Creatinine 0.58 L 0.62 L Estimated GFR > 60.0 > 60.0 BUN/Creatinine Ratio 22.4 H 21.0 Glucose 282 H D 320 H Hemoglobin A1c Lactate Calcium 8.5 8.6 Total Bilirubin 0.4 AST 14 L ALT 11 Alkaline Phosphatase 61 D Total Creatine Kinase CK-MB (CK-2) CK-MB (CK-2) Rel Index Troponin I C-Reactive Protein NT-Pro-B Natriuret Pep Total Protein 5.9 L Albumin 3.2 L Globulin 2.7 Albumin/Globulin Ratio 1.2 Lipase Urine Color Urine Appearance Urine pH Ur Specific [place] Urine Protein Urine Glucose (UA) Urine Ketones Urine Occult Blood Urine Nitrate Urine Bilirubin Urine Urobilinogen Ur Leukocyte Esterase Urine RBC Urine WBC Amorphous Sediment Urine Bacteria Hyaline Casts Ur Culture Indicated? Nasal Screen MRSA (PCR) Ketones SARS-CoV-2 (PCR) [facility] Medical History Cholecystitis with cholelithiasis Nicotine addiction Opioid use disorder Pancreatitis Type 2 diabetes mellitus Surgical History H/O hand surgery Status post cholecystectomy Family History Mother Diabetes mellitus Father Cancer Social History household members: significant other Smoking Status: Current every day smoker alcohol intake: current Discharge Plan Discharge Plan Patient Disposition: Home Nursing Discharge Comment: follow up with PCP @ [facility] WITHIN 1-2 WEEKS for further direction Discharge orders & Medications Prescriptions: Continued lisinopril 20 MG tablet 20 mg PO QAM Qty: 0 0RF aspirin 81 mg Tablet 81 mg PO QAM 0RF buprenorphine-naloxone 12-3 mg film 1 film buccal BID 0RF Label Comments: DISSOLVE 1 STRIP UNDER TONGUE TWICE DAILY Lantus Solostar U-100 Insulin 100 UNIT/1 ML insulin pen 34 unit SQ QHS 0RF Medication counseling provided by Pharmacist: Yes Diet/Activity/Treatments Diet: Carb-consistent/Diabetic Diet comment: LOW FAT/ CHOLESTEROL Activity: JIAN Skin/Wound/Dressing Care Report to your healthcare provider any signs of infection, such as:: chills, fever, night sweats, increased pain, unusual drainage and unusual redness Quality VTE Deep Vein Thrombosis/Pulmonary Embolism Present on Admission: No
[2021-02-12] MEDS: ASPIRIN EC 81 MG TABLET PO (09:27)
[2021-02-12] MEDS: ENOXAPARIN 40 MG/0.4 ML SYRINGE SUBCUT (09:27)
[2021-02-12] MEDS: lisinopriL 20 MG TABLET PO (09:27)
[2021-02-12] MEDS: BUPRENORPHINE/NALOXONE 8MG/2MG 1 TAB 1.5 TAB SL (09:28)
[2021-02-12] MEDS: INSULIN LISPRO 100 UNIT/ML 3ML VIAL SUBCUT ×2 (09:29→13:08)
--- NOTE | 2021-02-12 11:57 | PC.NURSE ---
Addendum entered by Loretta Ang R.N. 02/12/21 16:15: pt with closed anion gap as evidenced by cmp and he realizes this was due to his non-compliance and non-adherence to his glucose monitoring routine- encouraged setiing up follow up yamilet with PCP and getting better control on his diabetes. RX given for glucose monitoring device and strips as well as lantus and needles to deliver his ususal dose of 34 units lantus each pm- to begin this date- he understands and has all his questions answered to his satisfaction- awaiting ride from daughter Original Note: PT DENIES PAIN THIS AM IS TAKING USUAL RX LISINOPRIL/SUBOXONE- DID REPORT RUNNING OUT OF SUPPLIES FOR MANAGING HIS DM- ANION GAP 15 PER AM LABS- COVERED BLD GLU OF 288 THIS AM WITH LISPRO SSC AND ADMINISTERED 20 U OF LANTUS THIS AM- PLAN IS FOR POTENTIAL DC FOLLOWING CMP TO BE DRAWN AT 1245
[2021-02-12 12:45] LABS: Alanine Aminotransferase 12 IU/L (<50); Albumin 3.6 g/dL (3.5-5.0); Albumin Globulin Ratio 1.3 (1.0-2.8); Alkaline Phosphatase 71 U/L (38-126); Aspartate Aminotransferase 18 IU/L (17-59); BUN Creatinine Ratio 24.6 (6-22); Bilirubin Total 0.4 mg/dL (0.2-1.3); Blood Urea Nitrogen 14 mg/dL (9-20); Calcium 8.7 mg/dL (8.4-10.2); Carbon Dioxide 18 mmol/L (22-32); Chloride 107 mmol/L (98-107); Estimated Glomerular Filt Rate > 60.0 mL/min (>60); Globulin 2.8 g/dL (1.7-4.1); Glucose 379 mg/dL (70-100); HEMOLYSIS < 15 (0-50); Potassium 3.9 mmol/L (3.4-5.1); Sodium 136 mmol/L (137-145); Total Protein 6.4 g/dL (6.3-8.2)
--- NOTE | 2021-02-12 16:58 | CM.DANOTE ---
DCP assessment: Patient is 45 yr old male who presented to the ED with DKA do to no compliance with home glucose monitoring because his current monitor stopped working. Patient is covid positive so CM called patients room to discuss DC plan with the patient. Patient was aware of the issues with not checking his blood sugars and stated he will start up again at home. Patient is alert and oriented x4 during CM conversation. patient states he lives in [facility] with his significant other and his mother. patient states he drives at baseline and is independent with all ADLS. I: Healthcare management Plan: DC home with Script for glucose monitor and strips and plans on following up with his PCP. No identified DC planning needs noted at this time. CM department will follow to assist with any new DC planning needs that may arise. Liliana mayen Discharge Planning/Care Management CM Discharge Assessment Start: 02/12/21 16:55 Freq: Status: Discharge Protocol: Document 02/12/21 16:55 HS (Rec: 02/12/21 16:58 HS [id number]) Discharge Planning Assessment Assigned Processing Lead Liliana mayen DPOA/Assigned Designee Name salma Staples ( Mother) Contact Information [phone] Advance Directives? No History Provided By Medical Record Prior Living Arrangements House Household Members significant other Type of transporation used prior to Drives own vehicle admit Independent with ADL's Yes Is patient alert and oriented? Yes Caregiver for Another No Barriers to Discharge No Discharge Plan Home Referrals Initiated None needed Review Status In Process Next Review Type Continued Stay Review
[2021-02-13 16:15] LABS: Osmolality, Serum 328 mOsmol/kg (275-295)
== END 2021-02-12 16:45 | disposition home or self-care (01) | DRG 637 ==
LOC: ED 15:07 → ICU 02-12 08:50 → AC 02-13 07:58 → ICU 02-13 07:58
PROVIDERS: Hospitalist; Nurse Practitioner Family; Admitting Provider Family Medicine; Emergency Provider Emergency Medicine; Referring Provider Emergency Medicine; Visit Provider Family Medicine
DX: E11.10 Type 2 diabetes mellitus with ketoacidosis without coma (principal); U07.1 COVID-19; F11.20 Opioid dependence, uncomplicated; G89.4 Chronic pain syndrome; F17.210 Nicotine dependence, cigarettes, uncomplicated; Z79.4 Long term (current) use of insulin; Z91.14 Patient's other noncompliance with medication regimen
CPT/HCPCS: 36415; 36600; 71045; 80048; 80053; 81001; 82009; 82550; 82805; 82962; 83036; 83605; 83690; 83880; 83930; 83986; 84484; 85025; 85379; 85651; 86140; 87040; 87635; 87797; 93005; 96361; 96365; 96366; 96367; 96368; 96375; 99284; 99291; C9803; J1650; J1815

== ENCOUNTER → 2021-06-23 11:48 | Outpatient (CLI) | payer OTHER, SELFPAY ==
[2021-02-11 22:48] VITALS: BMI 24.0
--- NOTE | 2021-06-23 | DI.CT.S_ITS ---
PROCEDURE: CT ABDOMEN PELVIS WO/W CON INDICATIONS: Gross hematuria TECHNIQUE: Optional 5 mm thick noncontrast images acquired from the diaphragm to the symphysis pubis. After the administration of intravenous contrast, 5 mm thick images acquired from the diaphragm to the symphysis pubis after a 10-minute delay. 2 mm thick coronal and sagittal reformats were then performed of the kidneys and ureters. For radiation dose reduction, the following was used: automated exposure control, adjustment of mA and/or kV according to patient size. COMPARISON: [facility], CT, ABDOMEN/PELVIS WITH CONTRAST, 04/16/2017, 3:52. FINDINGS: Image quality: Excellent. Lung bases: Tiny pulmonary nodule at the left lung base. No pleural effusion. Heart size is normal. Urinary system: Both kidneys are normal in size. Renal enhancement is symmetric. Small renal cysts bilaterally. No solid renal mass. Obstructing calculus in the distal left ureter measuring 0.7 x 0.4 cm, (3/205). Moderate left hydronephrosis. No additional kidney stones. No right hydronephrosis. Bladder is partially decompressed. No calcified bladder stones. Other solid organs: Liver is normal in size and enhancement. Gallbladder is absent. Biliary system is non dilated. Pancreas is atrophic appearing. There is a cyst in the head of the pancreas measuring 1.5 x 1.4 cm, (3/106). There is a cyst in the tail the pancreas measuring 4.9 x 2.5 cm, (3/82). Spleen is normal in size and enhancement. No adrenal nodules. Peritoneum and bowel: Bowel loops demonstrate normal wall thickness and caliber. Normal appendix. No free fluid or air. Nodes and vessels: No retroperitoneal or mesenteric adenopathy by size criteria. Aorta and inferior vena cava are normal in size. Abdominal wall: No ventral hernias. Periumbilical clip. Pelvis: No pathologic free pelvic fluid. No inguinal hernias or adenopathy. Bones: No suspicious bony lesions. Small bone island in the left ilium. No vertebral body compression fractures. IMPRESSION: 1. Obstructing calculus at the distal left ureter measuring 0.7 x 0.4 cm. Moderate left hydronephrosis. 2. No additional kidney stones. 3. No solid renal mass. Ureters are suboptimally opacified. 4. Cysts in the tail and head of the pancreas measuring 4.9 cm and 1.5 cm respectively. Pancreas has an atrophic appearance and remote CT from 2018 demonstrated pancreatitis. The cysts most likely represents pseudocyst. Recommend clinical correlation. Comparison with interval cross-sectional imaging would be helpful. Follow-up CT pancreas in 3-6 months could be performed to demonstrate stability or decreased in size. Preliminary is also were discussed with Dr. Lilian Phillips at time of dictation. Dictated by: Chris Siddiqi M.D. on 06/23/2021 at 14:10 Approved by: Chris Siddiqi M.D. on 06/23/2021 at 14:30
== END ==
PROVIDERS: Referring Provider Physician Assistant; Visit Provider Physician Assistant
DX: R31.0 Gross hematuria (principal); N13.2 Hydronephrosis with renal and ureteral calculous obstruction; K86.2 Cyst of pancreas
CPT/HCPCS: 74178